=== PATIENT | female | born 1970 | race Caucasian/White ===

== ENCOUNTER 2018-07-11 23:43 | Emergency (ER) | payer OTHER ==
[~2018-07-11] VITALS: Ht 162.6 cm; Wt 72.6 kg
--- OUTSIDE RECORDS SUMMARY | ~2018-07-11 | XMS | Clinical Summary ---
Demographics + + + | Address | [address] | | | [address] | | | [place] [address] | + + + | Home Phone | | + + + | Preferred Language | Unknown | + + + | Marital Status | | + + + | Rastafari Affiliation | Unknown | + + + | Race | Unknown | + + + | Ethnic Group | Unknown | + + + Author + + + | Author | [facility] | | | and [place] | + + + | Organization | [facility] | | | and [place] | + + + | Address | Unknown | + + + | Phone | Unavailable | + + + Support + + +---------+ + | Name | Relationship | Address | Phone | + + +---------+ + | Dimas Carmona | ECON | Unknown | | + + +---------+ + Care Team Providers + +------+ + | Care Medical Records Clerk Name | Role | Phone | + +------+ + | Rogers Olmedo MD | PP | | + +------+ + Allergies + + + + + + | Active Allergy | Reactions | Severity | Noted | Comments | | | | | Date | | + + + + + + | Amoxicillin | | | 05/23/20 | | | | | | 12 | | + + + + + + | Ibuprofen | | | 05/23/20 | | | | | | 12 | | + + + + + + | Penicillins | | | 05/23/20 | | | | | | 12 | | + + + + + + Current Medications + + +-------+---------+------+------+-------+ | Prescription | Sig. | Disp. | Refills | Star | End | Statu | | | | | | t | Date | s | | | | | | Date | | | + + +-------+---------+------+------+-------+ | simvastatin | Take 20 mg by mouth | | | | | Activ | | (ZOCOR) 20 mg tablet | nightly. | | | | | e | + + +-------+---------+------+------+-------+ | gabapentin | Take 300 mg by mouth | | | | | Activ | | (NEURONTIN) 300 mg | 3 times daily. | | | | | e | | capsule | | | | | | | + + +-------+---------+------+------+-------+ | sertraline | Take 150 mg by mouth | | | | | Activ | | (ZOLOFT) 100 mg | Daily. | | | | | e | | tablet | | | | | | | + + +-------+---------+------+------+-------+ Active Problems + + + | Problem | Noted Date | + + + | Left leg weakness | 06/30/2014 | + + + | Subluxation of patella, acquired | 06/30/2014 | + + + | INJURY TO ULNAR NERVE | 05/23/2012 | + + + Social History + +-------+ +--------+------+ | Tobacco Use | Types | Packs/Day | Years | Date | | | | | Used | | + +-------+ +--------+------+ | Current Every Day | | | | | | Smoker | | | | | + +-------+ +--------+------+ + + + | Sex Assigned at | Date Recorded | | | | + + + | Not on file | | + + + Last Filed Vital Signs + + + + | Vital Sign | Reading | Time Taken | + + + + | Blood Pressure | 119/80 | 06/29/20141007 PDT | + + + + | Pulse | 67 | 06/29/20141007 PDT | + + + + | Temperature | - | - | + + + + | Respiratory Rate | - | - | + + + + | Oxygen Saturation | - | - | + + + + | Inhaled Oxygen | - | - | | Concentration | | | + + + + | Weight | 68 kg (150 lb) | 06/29/20141007 PDT | + + + + | Height | 160 cm (5' 3") | 06/29/20141007 PDT | + + + + | Body Mass Index | 26.57 | 06/29/20141007 PDT | + + + + Plan of Treatment + + + + + | Health Maintenance | Due Date | Last Done | Comments | + + + + + | Vaccine: | | | | | Dtap/Tdap/Td (1 - | 7 | | | | Tdap) | | | | + + + + + | Cervical Cancer | | | | | Screening (Pap) | 8 | | | + + + + + | Vaccine: Influenza | | | | | (#1) | 8 | | | + + + + + Results Not on filefrom Last 3 Months Insurance + +--------+ +--------+ +---------+ | Payer | Benefi | Subscriber | Type | Phone | Address | | | t Plan | ID | | | | | | / | | | | | | | Group | | | | | + +--------+ +--------+ +---------+ | [employer] | MODA | [id number] | Medica | [phone] | | | MEDICAID HMO | HEALTH | | id | [id number] | | | | MDCD | | | | | | | [place]MO [place] | | | | | + +--------+ +--------+ +---------+ + +--------+ +--------+ + + | Guarantor Name | Accoun | Relation to | Date | Phone | Billing Address | | | t Type | Patient | of | | | | | | | | | | + +--------+ +--------+ + + | HANNAH THOMPSON | Person | Self [birth year] Home: | [address] | | | al/Fam | | [phone] | [phone] [place] | | | ce | | | [phone] | [place] [address] | + +--------+ +--------+ + +
--- OUTSIDE RECORDS SUMMARY | ~2018-07-11 | XMS | Clinical Summary ---
Demographics + + + | Address | [address] | | | [address] | | | [place] [address] | + + + | Home Phone | | + + + | Preferred Language | Unknown | + + + | Marital Status | | + + + | Adventism Affiliation | Unknown | + + + | Race | Unknown | + + + | Ethnic Group | Unknown | + + + Author + + + | Author | [facility] | | | and [place] | + + + | Organization | [facility] | | [...] Team Providers + +------+ + | Care Financial Advisor Name | Role | Phone | + [...] | [employer] | MODA | [id number] | Medica | [phone] | | | MEDICAID HMO | HEALTH [...] | | | [phone] | [place] [address] | + +--------+ +--------+ + +
[~2018-07-11 23:43] MED LIST: ATIVAN1 MG PO; CIPRO250 MG PO; DICLOFENAC SODI75 MG PO; GABAPENTIN300 MG PO; GABAPENTIN400 MG PO; MIRTAZAPINE30 MG PO; NORCO 10-325 T1 EACH PO; NORCO 5-325 TA1 EACH PO; PAROXETINE HCL20 MG PO; PERCOCET 5-3251 EACH PO; PROMETHAZINE HC25 M1 PO; PROTONIX40 MG PO; SERTRALINE HCL100 MG PO; SIMVASTATIN10 MG PO; SIMVASTATIN20 MG PO; ZOFRAN ODT4 MG PO
[2018-07-13] MEDS ORDERED: PERCOCET 5-3251 EACH PO (09:25)
[2018-07-14] MEDS ORDERED: PERCOCET 10-321 EACH PO (13:08)
== END 2018-07-12 01:50 | disposition home or self-care (01) ==
LOC: ED 23:43
PROC: 2W3DX1Z Immobilization of Left Lower Arm using Splint (ICD-10-PCS; principal; 2018-07-11)
DX: S52.502A Unspecified fracture of the lower end of left radius, initial encounter for closed fracture (principal); F17.200 Nicotine dependence, unspecified, uncomplicated; Z88.0 Allergy status to penicillin; Z88.6 Allergy status to analgesic agent; W01.0XXA Fall on same level from slipping, tripping and stumbling without subsequent striking against object, initial encounter; Y92.090 Kitchen in other non-institutional residence as the place of occurrence of the external cause
CPT/HCPCS: 29125; 73110; 99283

== ENCOUNTER 2018-07-12 09:31 | Emergency (ER) | payer OTHER ==
[~2018-07-12] VITALS: Ht 162.6 cm; Wt 72.6 kg
--- OUTSIDE RECORDS SUMMARY | ~2018-07-12 | XMS | Clinical Summary ---
Demographics + + + | Address | [address] | | | [address] | | | [place] [address] | + + + | Home Phone | | + + + | Preferred Language | Unknown | + + + | Marital Status | | + + + | Yarsani Affiliation | Unknown | + + + | Race | Unknown | + + + | Ethnic Group | Unknown | + + + Author + + + | Author | [facility] | | | and [place] | + + + | Organization | [facility] | | | and [place] | + + + | Address | Unknown | + + + | Phone | Unavailable | + + + Support + + +---------+ + | Name | Relationship | Address | Phone | + + +---------+ + | Dimas Camrona | ECON | Unknown | | + + +---------+ + Care Team Providers + +------+ + | Care Flaker Operator Name | Role | Phone | + [...] | [employer] | MODA | [id number] | Medica | [phone] | | | MEDICAID HMO | HEALTH [...] | | | [phone] | [place] [id number] | + +--------+ +--------+ + +
--- OUTSIDE RECORDS SUMMARY | ~2018-07-12 | XMS | Clinical Summary ---
Demographics + + + | Address | [address] | | | [address] | | | [place] [address] | + + + | Home Phone | | + + + | Preferred Language | Unknown | + + + | Marital Status | | + + + | Scientology Affiliation | Unknown | + + + [...] Team Providers + +------+ + | Care Irrigation Pump Installer Name | Role | Phone | + [...] | [employer] | MODA | [id number] | Medica | [phone] | | | MEDICAID HMO | HEALTH [...] | | | [address] | [place] [id number] | + +--------+ +--------+ + +
[2018-07-13] MEDS ORDERED: PERCOCET 5-3251 EACH PO (09:25)
[2018-07-14] MEDS ORDERED: PERCOCET 10-321 EACH PO (13:08)
== END 2018-07-12 10:08 | disposition home or self-care (01) ==
LOC: ED 09:31
DX: M79.602 Pain in left arm (principal)

== ENCOUNTER 2018-08-27 17:11 | Emergency (ER) | payer OTHER ==
[~2018-08-27] VITALS: Ht 162.6 cm; Wt 68.0 kg
--- OUTSIDE RECORDS SUMMARY | ~2018-08-27 | XMS | Clinical Summary ---
Demographics + + + | Address | [address] | | | [address] | | | [place] [address] | + + + | Home Phone | | + + + | Preferred Language | Unknown | + + + | Marital Status | | + + + | Hinduism Affiliation | Unknown | + + + | Race | Unknown | + + + | Ethnic Group | Unknown | + + + Author + + + | Author | [facility] | | | and [place] | + + + | Organization | [facility] | | | [...] Team Providers + +------+ + | Care Abrasive Mixer Helper Name | Role | Phone | + [...] | [employer] | MODA | [id number] | Medica | [phone] | | | MEDICAID HMO | HEALTH [...] | | | [address] | [place] [address] | + +--------+ +--------+ + +
--- OUTSIDE RECORDS SUMMARY | ~2018-08-27 | XMS | Clinical Summary ---
Demographics + + + | Address | [address] | | | [address] | | | [place] [address] | + + + | Home Phone | | + + + | Preferred Language | Unknown | + + + | Marital Status | | + + + | Yazidi Affiliation | Unknown | + + + | Race | Unknown | + + + | Ethnic Group | Unknown | + + + Author + + + | Author | [facility] | | | and [place] | + + + | Organization | [facility] | | | [...] Team Providers + +------+ + | Care Clinic Scheduler Name | Role | Phone | + [...] | [employer] | MODA | [id number] | Medica | [phone] | | | MEDICAID HMO | HEALTH [...] | | | [address] | [place] [address] | + +--------+ +--------+ + +
[~2018-08-27 17:11] MED LIST changes: +PERCOCET 10-321 EACH PO
--- NOTE | 2018-08-28 06:36 | EKG ---
[facility] [address] [place], [place] [address] Signed Normal sinus rhythm Normal ECG When compared with ECG of 13-JUL-2018 09:27, No significant change was found Confirmed by PINEDA KEITA MD ([id number]) on 08/28/2018 6:36:36 AM Electronically Signed By: PINEDA KEITA MD 08/28/18 0636 PATIENT NAME: PATY PUENTES Electrocardiogram DATE OF : 66 PHYSICIAN: PINEDA KEITA MD REPORT #: [id number] REPORT IS CONFIDENTIAL AND NOT TO BE RELEASED WITHOUT AUTHORIZATION
== END 2018-08-27 20:42 | disposition home or self-care (01) ==
LOC: ED 17:11
DX: R11.2 Nausea with vomiting, unspecified (principal); R10.84 Generalized abdominal pain; R19.7 Diarrhea, unspecified; D72.829 Elevated white blood cell count, unspecified; Z87.891 Personal history of nicotine dependence; Z88.0 Allergy status to penicillin; Z88.6 Allergy status to analgesic agent
CPT/HCPCS: 74177; 80053; 81001; 83690; 84484; 85025; 93005; 93010; 96361; 96374; 96375; 96376; 99284; J1200; J2270; J2405; J2765; J7030; Q9967

== ENCOUNTER 2020-12-02 15:34 | Emergency (ER) | payer OTHER ==
[~2020-12-02] VITALS: Ht 160 cm; Wt 57.2 kg
[~2020-12-02 15:34] MED LIST changes: +HYDROCODON-ACE1 EAC8 PO; +LORAZEPAM1 MG PO; +NEURONTIN300 MG PO; +VENLAFAXINE HCL25 MG PO
--- OUTSIDE RECORDS SUMMARY | 2020-12-02 15:38 | XMS ---
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 Care History Medical/Surgical 07/13/2018 [facility] - PATIENT WAS PRESCRIBED 25 PAIN PILLS WITHIN THE LAST 24 HOURS. - PATIENT HAS A FOLLOW UP WITH DR ROSALES ON 07/13/18 @ 8:30 - SURGERY SCHEDULED WITH DR ROSALES ON 07/14/18. Annamarie VISIT COUNT (12 MO.) [address] [place] [address] TOTAL 1 NOTE: Visits indicate total known visits. ED/UCC VISIT TRACKING (12 MO.) 12/02/2020 15:35 [facility] [place] TYPE: Emergency COMPLAINT: - NAUSEA/VOMITING INPATIENT VISIT TRACKING (12 MO.) No inpatient visits to display in this time frame [email or web address]
[2020-12-02] MEDS ORDERED: VENLAFAXINE HC100 MG PO (15:48)
[2020-12-02] MEDS ORDERED: ATIVAN1 MG PO (18:26)
[2020-12-02] MEDS ORDERED: ZOFRAN4 MG PO (18:26)
== END 2020-12-02 20:18 | disposition home or self-care (01) ==
LOC: ED 15:34
DX: R11.2 Nausea with vomiting, unspecified (principal); R10.13 Epigastric pain; F41.9 Anxiety disorder, unspecified; F32.9 Major depressive disorder, single episode, unspecified; F17.200 Nicotine dependence, unspecified, uncomplicated; Z88.0 Allergy status to penicillin; Z88.8 Allergy status to other drugs, medicaments and biological substances; Z79.899 Other long term (current) drug therapy
CPT/HCPCS: 80053; 81001; 83690; 83735; 84703; 85025; 96374; 96375; 99284-25; J2060; J2405; J2765; J7030; J7121

== ENCOUNTER 2021-06-04 17:24 | Emergency (ER) | payer OTHER ==
[~2021-06-04] VITALS: Ht 160 cm; Wt 57.1 kg
[~2021-06-04 17:24] MED LIST changes: +VENLAFAXINE HC100 MG PO; +ZOFRAN4 MG PO
--- OUTSIDE RECORDS SUMMARY | 2021-06-04 17:26 | XMS ---
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 [place] VISIT COUNT (12 MO.) 2 [facility] TOTAL 2 NOTE: Visits indicate total known visits. ED/UCC VISIT TRACKING (12 MO.) 06/04/2021 17:[address] [facility] [place] TYPE: Emergency COMPLAINT: - ABDOMINAL PAIN 12/02/2020 15:35 [facility] [place] TYPE: Emergency COMPLAINT: - NAUSEA/VOMITING DIAGNOSES: - Other equipment operator intermodal yard (current) drug therapy - Nicotine dependence, unspecified, uncomplicated - Anxiety disorder, unspecified - Major depressive disorder, single episode, unspecified - Allergy status to other drugs, medicaments and biological substances - Nausea with vomiting, unspecified - Epigastric pain - Allergy status to penicillin INPATIENT VISIT TRACKING (12 MO.) 04/15/2021 06:02 [facility] [place] TYPE: Orthopedic DIAGNOSES: - 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
[2021-06-04] MEDS ORDERED: NAPROXEN500 MG PO (17:45)
[2021-06-04] MEDS ORDERED: QUETIAPINE FUMA25 MG PO (17:46)
[2021-06-04] MEDS ORDERED: ONDANSETRON ODT8 MG PO (21:37)
[2021-06-04] MEDS ORDERED: PROTONIX40 MG PO (21:37)
--- NOTE | 2021-06-06 08:50 | EKG ---
[facility] [address] [place] [address] Signed Sinus bradycardia Otherwise normal ECG When compared with ECG of 07-JUN-2019 13:31, Vent. rate has decreased BY 39 BPM Confirmed by RALPH EMMANUEL MD ([id number]) on 06/06/2021 8:50:34 AM Electronically Signed By: RALPH EMMANUEL MD 06/06/21 0850 PATIENT NAME: PATY PUENTES Electrocardiogram DATE OF : 66 PHYSICIAN: RALPH EMMANUEL MD REPORT #: [id number] REPORT IS CONFIDENTIAL AND NOT TO BE RELEASED WITHOUT AUTHORIZATION
== END 2021-06-04 22:16 | disposition home or self-care (01) ==
LOC: ED 17:24
DX: K52.9 Noninfective gastroenteritis and colitis, unspecified (principal); F17.200 Nicotine dependence, unspecified, uncomplicated; Z88.0 Allergy status to penicillin; Z88.8 Allergy status to other drugs, medicaments and biological substances; Z79.899 Other long term (current) drug therapy
CPT/HCPCS: 71045; 80053; 81001; 83690; 83735; 84484; 85025; 93005; 93010; 96361; 96374; 96375; 99284-25; C9113; J2270; J2405; J7030

== ENCOUNTER 2021-06-07 16:58 | Observation (INO) | payer OTHER ==
[~2021-06-07] VITALS: Ht 160 cm; Wt 58.0 kg
[~2021-06-07 16:58] MED LIST changes: +NAPROXEN500 MG PO; +ONDANSETRON ODT8 MG PO; +QUETIAPINE FUMA25 MG PO
--- OUTSIDE RECORDS SUMMARY | 2021-06-07 17:02 | XMS ---
PreManage Notification: PATY PUENTES Security Circular Shear Operator Events No recent Security Events currently on file CRITERIA MET - [facility] - 2 Visits in 30 Days CARE PROVIDERS EARLE [facility] 12/03/2020-Current PHONE: [phone] Salvador has no Care Guidelines for this patient. Annamarie VISIT COUNT (12 MO.) 4 [facility] TOTAL 4 NOTE: Visits indicate total known visits. ED/C VISIT TRACKING (12 MO.) 06/07/2021 16:[address] [facility] [place] TYPE: Emergency COMPLAINT: - WEAKNESS, IRREGULAR HEART RATE, SLURRED SPEECH 06/05/2021 16:[address] [facility] [place] TYPE: Emergency COMPLAINT: - ABDOM PAIN 06/04/2021 17:[address] [facility] [place] TYPE: Emergency COMPLAINT: - ABDOMINAL PAIN 12/02/2020 15:[address] 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
[2021-06-08] MEDS ORDERED: SUCRALFATE1 GM PO (11:37)
[2021-06-08] MEDS ORDERED: VENLAFAXINE HCL50 MG PO (11:40)
[2021-06-09] MEDS ORDERED: FLUCONAZOLE200 MG PO (09:27)
[2021-06-09] MEDS ORDERED: OXYCODONE HCL5 MG PO (09:28)
[2021-06-09] MEDS ORDERED: PROTONIX40 MG PO (09:28)
[2021-06-09] MEDS ORDERED: POTASSIUM CHLO20 ME1 PO (09:30)
== END 2021-06-09 12:25 | disposition home or self-care (01) ==
LOC: ED 16:58 → MS 17:00 → CCU 21:00 → ED 21:00 → CCU 21:27 → MS 21:27
PROVIDERS: Surgery; ADMIT Student in an Organized Health Care Education/Training Program; ATTEND Student in an Organized Health Care Education/Training Program
PROC: 0DB78ZX Excision of Stomach, Pylorus, Via Natural or Artificial Opening Endoscopic, Diagnostic (ICD-10-PCS; principal; 2021-06-08 11:07)
DX: B37.81 Candidal esophagitis (principal); K29.70 Gastritis, unspecified, without bleeding; E87.6 Hypokalemia; F39 Unspecified mood [affective] disorder; F17.200 Nicotine dependence, unspecified, uncomplicated; K21.9 Gastro-esophageal reflux disease without esophagitis; Z88.6 Allergy status to analgesic agent; Z88.0 Allergy status to penicillin; Z20.822 Contact with and (suspected) exposure to COVID-19
CPT/HCPCS: 74177; 80048; 80053; 81001; 83690; 83735; 84132; 85025; 94760; 96375; 96376; 99285-25; C9113; C9803; G0378; J0330; J0690; J1100; J1170; J1450; J1790; J2405; J2550; J2704; J3480; J7030; J7121; Q9967; U0003

== ENCOUNTER 2021-11-30 09:30 | Inpatient (IN) | payer OTHER ==
[~2021-11-30] VITALS: Ht 160 cm; Wt 60.0 kg
--- NOTE | ~2021-11-30 | DS ---
[facility] [address], [place] [address] Draft ADMISSION DATE: 11/30/2021 DISCHARGE DATE: 12/03/2021 ADMISSION DIAGNOSIS: Right hip fracture. DISCHARGE DIAGNOSIS: Right hip fracture. PROCEDURE PERFORMED DURING THIS HOSPITALIZATION: Open reduction and internal fixation, right hip. HOSPITAL COURSE: Hannah is a 51-year-old female, who suffered a ground level fall in her house, landing on her right hip. She was transported to the Emergency Department, where radiographs showed an intertrochanteric fracture. During the surgery, this was discovered to extend below the trochanter to the subtroch region. We thus changed our fixation choice from DHS to an IM hip screw. This was accomplished without any significant problems. She was taken to the recovery room subsequent to the orthopedic floor. She was seen by Physical therapy and able to ambulate yesterday with good strength and balance. She was little impulsive, but was able to transfer without any trouble with no assist. She will be felt ready to be discharged today to home, where she does have family to help take care of her. She will need a walker and in-home physical therapy due to adverse weather conditions. She was kept on DVT prophylaxis of SCDs, TEDs, and Xarelto 10 mg p.o. daily. This will be continued at home. She did well on pain medication of oxycodone. She will follow up with me in 7-10 days. She will notify me of any problems in the interim. Ernesto Deluna MD BA/YAMILE /[id number] Copies: PATIENT NAME: HANNAH PUENTES DISCHARGE SUMMARY DATE OF : 66 REPORT #: [id number] PHYSICIAN: ERNESTO DELUNA MD PCP: CIRO OG MD REPORT IS CONFIDENTIAL AND NOT TO BE RELEASED WITHOUT AUTHORIZATION [address] [place], [place] [address] Draft ~ PATIENT NAME: HANNAH PUENTES DISCHARGE SUMMARY DATE OF : 66 REPORT #: [id number] PHYSICIAN: ERNESTO DELUNA MD PCP: CIRO OG MD REPORT IS CONFIDENTIAL AND NOT TO BE RELEASED WITHOUT AUTHORIZATION
[~2021-11-30 09:30] MED LIST changes: +FLUCONAZOLE200 MG PO; +OXYCODONE HCL5 MG PO; +POTASSIUM CHLO20 ME1 PO; +SUCRALFATE1 GM PO; +VENLAFAXINE HCL50 MG PO
--- OUTSIDE RECORDS SUMMARY | 2021-11-30 09:32 | XMS ---
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 CRITERIA MET - [facility] CARE PROVIDERS EARLE [facility] 12/03/2020-Current PHONE: Unknown Salvador has no Care Guidelines for this patient. E.D. VISIT COUNT (12 MO.) 5 [facility]. TOTAL 5 NOTE: Visits indicate total known visits. ED/UCC VISIT TRACKING (12 MO.) 11/30/2021 09:31 [facility] [place] TYPE: Emergency COMPLAINT: - FALL,R LEG PAIN 06/07/2021 16:59 [facility] [place] TYPE: Emergency COMPLAINT: - ESPHOGITIS HYPOKALEMIA 06/05/2021 16:28 [facility] [place] TYPE: Emergency COMPLAINT: - ABDOM PAIN 06/04/2021 17:[address] [facility] [place] TYPE: Emergency COMPLAINT: - ABDOMINAL PAIN DIAGNOSES: - Allergy status to other drugs, medicaments and biological substances - Nicotine dependence, unspecified, uncomplicated - Other terminal manager (current) drug therapy - Noninfective gastroenteritis and colitis, unspecified - Nausea with vomiting, unspecified - Allergy status to penicillin 12/02/2020 15:35 [facility] [place] [place] TYPE: Emergency COMPLAINT: - NAUSEA/VOMITING DIAGNOSES: - Other long-term (current) drug therapy - Nicotine dependence, unspecified, uncomplicated - Anxiety disorder, unspecified - Major depressive disorder, single episode, unspecified - Allergy status to other drugs, medicaments and biological substances - Nausea with vomiting, unspecified - Epigastric pain - Allergy status to penicillin INPATIENT VISIT TRACKING (12 MO.) 06/07/2021 17:[address] [facility] [place] TYPE: Observation COMPLAINT: - ESPHOGITIS HYPOKALEMIA DIAGNOSES: - Unspecified mood [affective] disorder - Candidal esophagitis - Gastro-esophageal reflux disease without esophagitis - Gastritis, unspecified, without bleeding - Allergy status to penicillin - Hypokalemia - Nicotine dependence, unspecified, uncomplicated - Allergy status to analgesic agent 04/15/2021 06:02 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
--- NOTE | 2021-11-30 12:40 | NUR ---
REPORT RECEIVED FROM CA SILVESTRE. AWAITING PTS ARRIVAL TO UNIT.
--- NOTE | 2021-11-30 13:00 | NUR ---
THIS RN BRINGS PT TO MED/SURG. PT TRANSFERED TO BED WITH 3 PERSON ASSIST. PTS PAIN INCREASES FROM 03/08 TO 9 WITH TRANSFER. PT TEARFUL AND CRYING OUT LOUDLY. MEDICATION GIVEN (SEE MAR). PT CALMS AFTER 5 MINUTES. PILLOWS UNDER PTS AFFICTED LEG, REMOVED. LEGS ELEVATED IN BED FOR COMFORT. PTS STATES "THATS MUCH BETTER. PT REMAINS OFF THE 2L O2 BY NC DURING TRANSFER TO BED AND NOTED TO KERRI P TO 77% O2 SATURATIONS. PT PLACED BACK ON 2L O2 BY MS WITH OXYGNE SATUARTIONS CLIMBING TO 94%. PT REPORTS PAIN IS IMPROVING NOW 05/08. IV'S ASSESSED, WNL, BRISK BLOOD RETURN NOTED TO BOTH. IV FLUIDS STARTED. PT ALERT AND ORIENTED TO ALL. SENSATION INTACKT. WEAKNESS AND SEVERE PAIN NOTED TO RIGHT LEG WITH ANY MOVEMENT. PT IS ABLE TO WIGGLE TOES. MODERATE PLANTAR AND DORSI FELXTION NOTED TO BILATERAL LOWER EXTREMTIES. PT REPORTS OCCATIONAL COUGH, LUNG SOUNDS CLEAR, PT REPORTS OCCATIONAL CLEAR SPUTUM. STONG TIBIALIS AND PEDIAL PULSES NOTED. PT REPORTS DENTURES HAVE BEEN LEFT AT HOME AND "DONT' FIT ANYWAY." NO ADDITIONAL REQUESTS OR COMPLAINTS. CALL LIGHT WIHTIN REACH. BED RAILS UP.
--- NOTE | 2021-11-30 13:39 | NUR ---
THIS RN TO ROOM TO CHECK ON PT. DR. MIKE TO BEDSIDE FOR ROUNDS. PT REPORTS PAIN IS NOW 2/10 AND "MUCH BETTER[address] DR. MIKE CONSULTED REGARDING A NICOTENE PATCH, VERBAL ORDERS GIVEN AND ENTERED. ORDERS GIVEN FOR REGULAR DIET. COFFEE WITH CREAM AND SUGAR PROVIDED PER PT REQUEST. DR. MIKE STATES TO POSITION PT FOR COMFORT. PT DECLINES PILLOW BACK UNDER HER LEG STATING SHE IS COMFORTABLE NOW. NO ADDITIONAL REQUESTS OR COMPLAINTS. CALL LIGHT WIHTIN REACH. BED RAILS UP.
--- NOTE | 2021-11-30 14:02 | NUR ---
IV FLUID ORDER CHANGED. NEW BAG HUNG. PT WATCHING TV. HEEL PROTECTORS AND SCD'S APPLIED PER MD ORDER. MD STATES TXA IS TO BE WARNING ANALYST TO OR AND NOT TO BE GIVEN NOW. PHARAMCY CALLED, MEDICAITON RETIMED. NO ADDITIONAL REQUESTS OR COMPLAINTS. CALL LIGHT WITHIN REACH. BED RAILS UP.
--- NOTE | 2021-11-30 14:49 | NUR ---
THIS RN TO ROOM TO CHECK ON PT. PT REPORTS PAIN IS "CREEPING BACK UP." PT REPORTS 6/10 ACHING CONSTANT PAIN IN LEFT UPPER LEG. SEE MAR FOR MEDICATION GIVEN. PT DENIES ADDITIONAL REQUESTS OR COMPLAINTS. CALL LIGHT WITHIN REACH. BED RAILS UP.
[2021-11-30] MEDS ORDERED: PRILOSEC OTC20 MG PO (15:36)
[2021-11-30] MEDS ORDERED: ACETAMINOPHEN1 EACH PO (15:37)
--- NOTE | 2021-11-30 15:37 | NUR ---
MED REC COMPLETE
--- NOTE | 2021-11-30 15:48 | NUR ---
THIS RN TO ROOM TO CHECK ON PT. PT TALKING ON PHONE. PT REPORTS 4/10 PAIN AT THIS TIME REPORTS PAIN IS TOLERABLE AT THIS TIME. PT DECLINES PLACING A DINNER ORDER AT THIS TIME. REQUESTS [facility]. NO ADDITIONAL REQUESTS OR COMPLAINTS. CALL LIGHT WITHIN REACH. BED RAILS UP.
--- NOTE | 2021-11-30 16:18 | NUR ---
THIS RN TO ROOM WITH DR. KEITA. PT HAS REMOVED OXGYEN FROM NOSE. PT REPORTS A DRY NOSE. OXGYEN SATURATIONS MID 80'S ON ROOM AIR. HUMIDIFICATION ADDED TO OXGYEN TUBING, EDUCATION DONE WITH PT REGARDING KEEPING OXGYEN IN PLACE. OXYGEN SATURATION CLIMBS TO 96% ON 2L O2 BY NC. PT SLOW TO RESPOND AND FORGETFUL. PT REPORTS 6/10 PAIN AND STATES "IT IS TOLERABLE." EDUCATION DONE WITH PT REGARDING PAIN MEDICAITON USE. PT REPORTS AT THIS TIME THAT SHE SMOKES MARIJAUANA "WHENEVER I FEEL I NEED IT" CLARIFYING THAT THIS MEANS MULTIPLE TIMES A DAY. PT ALSO REPORTS HISTORY OF INCONTINANCE. PT DENIES ADDITIONAL REQUESTS OR COMPLAINTS. CALL LIGHT DEXMA REACH. BED RAILS UP.
--- NOTE | 2021-11-30 17:06 | NUR ---
MEDICAITONS DUE. THIS RN TO ROOM. DINNER DELIVERED TO PT. PT REPORTS HER DINNER "IS DISCUTING." ALTERNATE FOOD OFFERED TO PT. PT DECLINES AND IS EATING HER POTATOES. PT RERPOTS 3/10 PAIN IN BACK OF RIGHT LEG AT THIS TIME. ICE PACKS PLACED PER ORDER FROM DR. KEITA. PT REPORTS SHE WANTS TO "GO HAVE A SMOKE OF PLEITEZ." PT EDUCATION DONE REGARDING SMOKE FREE ENVIRONMENT OF HOSPITAL. MEDICATIONS GIVEN. NO ADDITIONAL REQUESTS OR COMPLAINTS. CALL LIGHT WITHIN REACH.
--- NOTE | 2021-11-30 17:35 | NUR ---
PT HERE FOR RIGHT INTROTROCANTER FEMORAL FRACTURE. PT REMAINS ON BED REST. PT TOELRATING REGULAR DIET WITH MINIMAL INTAKE. PT TO BE NPO AT MIDNIGHT FOR PROBABLE SURERGY TOMORROW. PT ALERT AND ORIENTED. RIGHT HIP AND LEG PAIN 2-9/10, WORSE WITH MOVEMENT. BLOCK PERFORMED BY PATIENT MONITOR IN ER, PRN PAIN MEDICATIONS GIVEN, ICE PACKS IN PLACE. PT REMAINS ON 2L O2 BY NC WITH FREQUENT DROWSINESS. MALAVE CATHETER IN PLACE, QUANTITY SUFFICIENT. PT HAS YET TO USE CALL LIGHT. BED RAILS UP AND BED ALARM ON FOR SAFETY.
--- NOTE | 2021-11-30 18:37 | NUR ---
PT CALL LIGHT ON. PT REQUESTS ADDITIONAL PAIN MEDICATION FOR 7/10 PAIN IN RIGHT "DEEP DOWN IN SIDE" HIP. PT POINTS TO INGINAL AREA WHEN DESCRIBING PAIN. PT EDUCATION DONE REGARDING PAIN MEDICATION AND RESPIRTORY RATE. MEDICATION GIVEN, SEE MAR. PT PREVIOUSLY WEANED TO 1L O2 BY GA BY CA BALLARD. PT REMAINS AT 94-96% ON 1L O2 BY GA AT THIS TIME. RR = 14-16. PT HAS REMOVED OXGYEN TUBING AND STATES "I WON'T WEAR IT, IT HURTS MY NOSE." PT OXGYEN SATURATION DROP TO MID 80'S ON ROOM AIR. OXY MASK PLACED AT 1L O2 TO MAINTAIN OXGYEN SATURATIONS IN 90'S. PT DENIES ADDITIONAL REQUESTS OR COMPLAINTS. CALL LIGHT WITHIN REACH. BED RAILSUP. BED ALARM ON.
--- NOTE | 2021-11-30 19:30 | NUR ---
SHIFT REPORT RECEIVED FROM ROSE MARIE PENALOZA. PT RESTING IN BED, TALKING ON PHONE. IV FLUIDS INFUSING PER ORDER. CALL LIGHT IN REACH.
--- NOTE | 2021-11-30 20:25 | EKG ---
[facility] [address] [place] [address] Signed Normal sinus rhythm Normal ECG When compared with ECG of 04-JUN-2021 17:47, Vent. rate has increased BY 30 BPM Confirmed by PINEDA KEITA MD ([id number]) on 11/30/2021 8:25:38 PM Electronically Signed By: PINEDA KEITA MD 11/30/212024 PATIENT NAME: PATY PUENTES Electrocardiogram DATE OF : 66 PHYSICIAN: PINEDA KEITA MD REPORT #: [id number] REPORT IS CONFIDENTIAL AND NOT TO BE RELEASED WITHOUT AUTHORIZATION
--- NOTE | 2021-11-30 21:00 | NUR ---
PT RESTING IN BED, WATCHING TV. NO NEEDS AT THIS TIME. CALL LIGHT IN REACH.
--- NOTE | 2021-11-30 22:00 | NUR ---
ASSESSMENT, VS AND I&O COMPLETED. ANANDA WNL. PT IS VERY TEARFUL, "ANGRY" ABOUT MULTIPLE PERSOANL ISSUES. THERAPUTIC COMMUNICATION PROVIDED. GCS 15, A&O X4.LUNGS CLEAR, HEART TONES REGULAR. ABD SOFT, NONTENDER, BOWEL TONES ACTIVE. CMS INTACT IN ALL EXTREMITIES EXCEPT WEAKNESS IN RIGHT HIP/LEG. ICE PACKS PROVIDED FOR HIP. PT REPORTS 10/10 R HIP PAIN, PRN PAIN MED PROVIDED. SCHEDULED MEDS PROVIDED. IVs WNL, CDI, IV FLUIDS INFUSING PER ORDER. ANANDA WNL. COFFEE PROVIDED. NO OTHER NEEDS. CALL LIGHT IN REACH.
--- NOTE | 2021-11-30 23:36 | NUR ---
TEA PROVIDED. NEW BAG IV FLUIDS PROVIDED. PT DENIES PAIN AT THIS TIME. NO OTHER NEEDS. CALL LIGHT IN REACH.
--- NOTE | 2021-12-01 00:20 | NUR ---
PT NPO AT THIS TIME. FLUIDS REMOVED. MOUTH SWABS PROVIDED. NO OTHER NEEDS. CALL LIGHT IN REACH.
--- NOTE | 2021-12-01 02:30 | NUR ---
ASSESSMENT, VS AND I&O COMPLETED. PT CALM AT THIS TIME. LUNGS CLEAR. HEART TONES REGULAR. ABD SOGT, NONTENDER, BOWEL TONES ACTIVE. CMS INTACT EXCEPT DECREASED MOVEMENT IN RIGHT HIP/LEG. IVs WNL. ICE PACKS PROVIDED. SCDs AND HEEL PROTECTION ON. PT REPORTS 7/10 R HIP PAIN, PRN PAIN MED PROVIDED. NO OTHER NEEDS. CALL LIGHT IN REACH.
--- NOTE | 2021-12-01 04:30 | NUR ---
PT RESTING IN BED. WATCHING TV. CALL LIGHT IN REACH.
--- NOTE | 2021-12-01 05:30 | NUR ---
PT HAS 7/10 RIGHT HIP PAIN, PRN PAIN MED PROVIDED. VS AND I&O COMPLETED. MALAVE WNL. NO OTHER NEEDS AT THIS TIME. CALL LIGHT REACH.
--- NOTE | 2021-12-01 07:16 | NUR ---
REPORT RECEIVED FROM CA JUAREZ. PT RESTING IN BED. PT HAD REMOVED OXY MASK. OXYGEN SATURATION 86% ON ROOM AIR. PT EDUCATION DONE REGARDING LEAVING OXYGEN IN PLACE. PT VERBALIZES UNDERSTANDING. PT PLACED BACK ON 1L O2 BY OM AND OXYGEN SATURATIONS CLIMB TO 94%. PT REPORTS 0/10 PAIN AT THIS TIME BUT REPORTS "TWITCHING" IN HER RIGHT LEG. PT UPDATED ON PLAN OF CARE AN PLAN FOR SURGERY. PT REQUESTS FOOD AND COFFEE, EDUCATION DONE WITH PT REGARDING NPO STATUS. NO ADDITIONAL REQUESTS OR COMPLAINTS. CALL LIGHT WITHIN REACH. BED RAILS UP. BED ALARM ON.
--- NOTE | 2021-12-01 07:34 | NUR ---
DR MIKE CALLED REGARDING MORNING PO MEDICATIONS. DR. MIKE STATES TO GIVE ALL MORNING PO MEDICATIONS.
--- NOTE | 2021-12-01 07:41 | NUR ---
MORNING ASSESSMENT AND MEDICAITON DUE. PT WATCHING CARTOONS ON TV. AWAKENS TO MOVEMENT IN THE ROOM. PT UP DATED ON PLAN OF CARE. PT REPORTS 3/10 PAIN IN RIGHT HIP AT THIS TIME THAT COMES IN "SHARP TWITCHING" AND THEN RESOLVES BACK TO 0/10. PT REPORTS " LONG I DON'T MOVE IT'S FINE." PT DENIES NEED FOR PAIN MEDICATION AT THIS TIME. ICE PACKS IN PLACE. IV'S ASSESSED, WNL, BRISK BLOOD RETURN NOTED FROM BOTH SITES. LEFT AC IV SALINE LOCKED, RIGHT AC IV INFUSING IV FLUIDS. PT REMAINS ALERT AND ORIENTED TO ALL. RIGHT LEG PAIN AND WEAKNESS CONTINUES. GENERALIED EDEMA NOTED TO RIGHT HIP AND LOWER LEG, NON PITTING AT THIS TIME. STRONG PLANTAR AND DEVORAH FELXTION NOTED BILATERALLY. STRONG PEDAL AND TIBIALIS PULSES NOTED. PT CONTINUES TO REPORT NUMBNESS IN RIGHT UPPER THIGH AND UPPER LEG. PT IS ABLE TO IDENTIFY ALL TOES WHEN TOUCHED. PT REPROTS "TINGLING" IN HER RIGHT CALF. EDUCATION DONE REGARDING NERVE BLOCK. PT VERBALIZES UNDERSTANDING. PT DENEIS ADDITIONAL REQUESTS OR COMPLAINTS. MEDICAITONS GIVEN WITH A SMALL SIP OF WATER, PT TOELRATED WELL. BED RAILS UP. CALL LIGHT WITHIN REACH. BED ALARM ON. SCD'S, AND HEEL PROTECTORS IN PLACE.
--- NOTE | 2021-12-01 09:31 | NUR ---
THIS RN TO ROOM TO CHECK ON PT. PT RESTING WITH EYES CLOSED. PT AWAKENS TO MOVEMENT IN THE ROOM, REPROTS 4/10 PAIN IN RIGHT HIP THAT "COMES AND GOES LIKE ZAPPING." PT DRIFTS QUICKLY BACK TO SLEEP. O2 AT 1L IN PLACE BY OXYMASK. BED RAILS UP. BED ALARM ON. NO ADDITIONAL NEEDS AT THIS TIME.
--- NOTE | 2021-12-01 10:00 | NUR ---
INTO ROOM TO ASSESS PATIENT. MELISA MAY AT BEDSIDE. PATIENT AWAKE, BUT APPEARS DROWSY. WHEN ASKED ABOUT PATIENT LIVING SITUATION SHE STATES SHE LIVES IN A HOME WITH HER CHILDREN, THOUGH LATER IN THE CONVERSATION PATIENT DISCUSSING MOVING IN WITH HER SON AFTER SURGERY. PATIENT STATES SHE NORMALLY IS ABLE TO COMPLETE ALL ADLS, SHOPPING AND DAILY TASKS ON HER OWN. PATIENT SON DONAL LIVE CLOSE TO HER AND ASSISTS WITH CARING FOR THE PATIENT ELDERLY MOTHER. PATIENT DOES NOT REQUIRE ANY DME. PATIENT STATES SHE HAS NOT WORKED IN SOMETIME, BUT CURRENTLY DOES NOT HAVE ANY FINANCIAL CONCERNS. PATIENT IS NORMALLY ABLE TO DRIVE HERSELF. DISCUSSED WITH PATIENT THAT SHE WILL LIKELY REQUIRE ASSISTANCE AND DME UPON DISCHARGE. PATIENT UNDERSTANDS AND BELIEVES SHE WILL BE ABLE TO MOVE IN WITH HER SON DONAL WHEN READY.
--- NOTE | 2021-12-01 10:03 | NUR ---
Patient is in bed with call light in reach. Guerrero was emptied.
--- NOTE | 2021-12-01 10:50 | NUR ---
THIS RN TO ROOM TO CHECK ON PT. PT REPORTS 6/10 RIGHT LEG PAIN, SEE MAR FOR MEDICATION GIVEN. PT ASSISTING BUSINESS ADMINISTRATION PROGRAM CHAIR WITH CHG WIPE DOWN PRIOR TO SURGERY. NO ADDITIONAL REQUESTS OR COMPLAINTS. CALL LIGHT WITHIN REACH. BED RAILS UP.
--- NOTE | 2021-12-01 11:17 | NUR ---
Wipe down for patient's surgery is complete at 11:10am today. 1PA. Patient is in bed with call light in reach and has a clean sheet on top of her.
--- NOTE | 2021-12-01 11:35 | NUR ---
THIS RN TO ROOM TO CHECK ON PT. PT RESTING IN BED ON BACK WITH EYES CLOSED. RESPIRATIONS EVEN AND UNLABORED. PT AWAKENS TO VOICE. PT REPORTS 6/10 PAIN AND REQUESTS ADDITIONAL PAIN MEDICATION. PT REPOSITIONED FOR COMFORT. ICE PACKS IN PLACE. SCD'S AND HEEL PROTECTORS REAPPLIED. PT DENIES ADDITIONAL REQUESTS OR COMPLAINTS. CALL LIGHT WITHIN REACH. BED RAILS UP. BED ALARM ON.
--- NOTE | 2021-12-01 12:06 | NUR ---
CALL RECEIVED, OR TEAM IN TRANSIT TO COLLECT PT FOR SURGERY. MEDICATIONS PULLED AND HUNG AT BEDSIDE FOR OR TEAM, TO BE ADMINISTERED IN OR. IV FLUSHED, BRISK BLOOD RETURN NOTED. PT UPDATED ON PLAN OF CARE. PRE OP CHECK LIST COMPLETE. PT VERBALIZES UNDERSTANDING OF PLAN OF CARE AND STATES HER QUESTIONS HAVE BEEN ANSWERED. NO ADDITIONAL REQUESTS OR COMPLAINTS. CALL LIGHT WITHIN REACH. BED RAILS UP.
--- NOTE | 2021-12-01 12:11 | NUR ---
CHELSEA MARINE RADIO INSTALLER AND SERVICER, ARRIVED TO TAKE PT TO OR. REPORT GIVEN TO CHELSEA. PT TO OR.
--- NOTE | 2021-12-01 14:59 | NUR ---
12/01/21 145ANTHONY JONES 1431-PATIENT ARRIVES IN PACU ON 10L VIA MASK. PATIENT IS REACTIVE TO VERBAL STIMULI. NPA IN PLACE. DIFFICULT OBTAINING O2 SATS. BLACKSMITH ASSISTANT AWARE. RESP EVEN AND UNLABORED. 1438-PATIENT IS REACTIVE TO VERBAL STIMULI. LUNG BASES CLEAR THROUGHOUT PER JOSELIN PENALOZA. 1440-PATIENT IS DROWSY. NPA REMOVED. RESP EVEN AND UNLABORED. DENIES PAIN AND NAUSEA. 1443-O2 DECREASED TO 6L VIA MASK. HOB RAISED.
--- NOTE | 2021-12-01 16:22 | NUR ---
POST OP EPIDURAL ORDER NOTED, PHARMACIST CALLED AND MEDICATION TIMES READJUSTED.
--- NOTE | 2021-12-01 16:25 | NUR ---
PT ARRIVED FROM PACU. REPORT RECEIVED FROM CA OLIVERA. PT ALERT AND ORIENTED AND RESPONDING TO QUESTIONS APPROPRIATLY. PT REPORTS 2/10 PAIN IN RIGHT HIP/LEG THAT IS WELL CONTROLED. PT DENIES NEED FOR PAIN MEDICATION AT THIS TIME. CRYO CUFF IN PLACE. STRENGTH WNL TO UPPER EXTREMITIES AND LEFT LOWER LEG. RIGHT LOWER LEG SLIGLY WEAK. PT ABLE TO MOVE TOES. STRONG AND EQUAL PLANTAR AND DORSI FLEXION NOTED TO BILATERAL FEET. STRONG BILATERAL TIBIALIS AND PEDEAL PULSES NOTED. SENSATION INTACT TO FEET, PT ABLE TO IDENTIFY TOES THAT ARE TOUCHED. GENERALIZED SWELLING NOTED TO RIGHT HIP AND UPPER LEG. PT TOLERATING PO COFFEE CRACKERS AND JELLO. DIET ADVANCED TO REGULAR. MALAVE CATHER REMAINS IN PLACE, DRAINING QUANTITY SUFFICIENT. ACTICOAT IN PLACE TO RIGHT UPPER LEG AND ABOVE THE KNEE. SMALL AMOUNT OF RED DRAINAGE NOTED AT PROXIMAL END OF DRESSING APPROXIMATLY THE SIZE OF A QUARTER. PIN POINT RED DRAINAGE NOTED TO DISTAL END OF DRESSING. CAST PADDING NOTED WRAPPED AROUND PTS FEET. URGENT CARE NURSE PRACTITIONERJOSELIN CALLED AND STATES CAST PADDING CAN BE REMOVED PER OR TEAM. CAST PADDING REMOVED BY THIS RN. PT TOELRATES MOVEMENT OF LEG WELL. SCD'S, HEEL PROTECTORS AND CRYO CUFF REMAIN IN PLACE. PT DENIES ADDITIONAL REQUESTS OR COMPLAINTS. CALL LIGHT WITHIN REACH. BED RAILS UP. BED ALARM ON.
--- NOTE | 2021-12-01 17:34 | NUR ---
SECOND POST OP VITALS DONE. PATIENT IS RESTING IN BED, WATCHING TV. PATIENT REPORTS 0/10 PAIN, CONTINUES ON 3L OF OXYGEN.
--- NOTE | 2021-12-01 18:00 | NUR ---
Patient refused dinner order and opted for two jellos. Call light is in reach. Patient is in bed.
--- NOTE | 2021-12-01 18:30 | NUR ---
VITALS AND ASSESSMENT DUE. PT TALKING ON PHONE. PT REPORTS 0/10 PAIN, SCHEDULED PAIN MEDICATIONS GIVEN. VITAL SIGNS STABLE. PT WEANED TO 2L O2 BY NC AND IS MAINTINING OXYGEN SATURATIONS ABOVE 94%. DRESSING INTACT, SMALL AMOUNT (GOLF BALL SIZE) RED DRAINAGE NOTED AT PROXIMAL END OF DRESSING. PIN POINT SPOTS NEAR DISTAL END. STRONG PLANTAR AND DORSI FLEXTION NOTED. STRONG PEDAL PULSES NOTED. SENSATION INTACT. PT DENIES NAUSEA, REPORTS SHE ATE MINIMAL FOOD BECAUSE "I JUST DON'T LIKE THE FOOD HERE." PT DENIES ADDIITONAL REQUESTS OR COMPLAINTS. CALL LIGHT WITHIN REACH. BED RAILS UP. BED ALARM ON. SCD'S, HEEL PROTECTORS AND CRYO CUFF IN PLACE.
--- NOTE | 2021-12-01 18:47 | NUR ---
PT POST OP DAY ZERO FOR RIGHT FEMORAL INTROTROCANTER FRACTURE REPAIR. PT HAS NOT YET BEEN OUT OF BED AFTER SURGERY, ENCORUAGED TO DO SO TOELRATED. PT TOERLATING REGULAR DIET WITH MINMAL APPITITE, PT REPORTS SHE DOES NOT LIKE THE FOOD AT THE HOSPITAL. DIET PREFERENCES ACCOMIDATED. PT REPORTS 0-7/10 PAIN. SCHEDULED PAIN MEDICATION GIVEN, NERVE BLOCK DONE POST OP. ACTICOAT, SUTURES AND OPSITE IN PLACE. DRESSING INTACT WITH SMALL AMOUNT OF RED DRAINAGE NOTED ON PROXIMAL END OF DRESSING. CMS INTACT WITH STRONG PLANTAR AND DORSI FELXION THIS SHIFT WELL STRONG PEDAL PULSES. SENSATION INTACT. MALAVE CATHETER REMAINS IN PLACE, QUANTITY SUFFICENT. PT USES CALL LIGHT AND MAKES NEEDS KNOWN.
--- NOTE | 2021-12-01 19:10 | NUR ---
REPORT RECEIVED FROM CA TROTTER. pt RESTING IN BED. 2L OXYGEN BY NC IN PLACE, SPO2 98% WITH CPOX. DRESSINGS INTACT RIGHT HIP, ACTICOAT ON HIP WITH SMALL AMT SEROSANGUINOUS SHADOWING ON DRESSING. LOWER DRESSING DRY AND INTACT. SCDS, HEEL PROTECTORS ON. IVF INFUSING WNL.
--- NOTE | 2021-12-01 20:15 | NUR ---
pt RESTING IN BED AWAKE. DENIES PAIN. CSM INTACT BLE, NUMBNESS FROM KNEE UP ON RIGHT LEG. SCDS, HEEL PROTECTORS ON. ASSESSMENT COMPLETE. DRESSINGS INTACT, SMALL AMT SHADOWING ON HIP ACTICOAT, UNCHANGED FORM START OF SHIFT. CRYO CUFF REFILLED WITH ICE AND IN PLACE. MALAVE EMPTIED. ICE WATER REFILLED. CHAPSTICK PROVIDED. NEW BAG IVF INFUSING WNL, IV SITES FLUSHED WNL, BRISK BLOOD RETURN. CALL LIGHT IN REACH.
--- NOTE | 2021-12-01 22:29 | NUR ---
pt RESTING IN BED AWAKE. DENIES PAIN. COOKIE HOSE APPLIED PER ORDERS. SPOT CHECK SPO2 WNL WITH 3L OXYGEN BY NC. SCDS, HEEL PROTECTORS ON. COFFEE PROVIDED. CALL LIGHT IN REACH. pt ON PHONE WITH SON.
--- NOTE | 2021-12-01 22:47 | NUR ---
ANTIBIOTIC COMPLETE. pt RESTING IN BED ON TELEPHONE. NO ADDITIONAL NEEDS AT THIS TIME. CALL LIGHT IN REACH.
--- NOTE | 2021-12-02 00:06 | NUR ---
CALL LIGHT ANSWERED. pt DROWSY, RESTING IN BED. REQUESTING IV IN LEFT AC BE REMOVED DUE TO DISCOMFORT. IV D/C'D WNL. IVF INFUSING WNL RIGHT AC. CALL LIGHT IN REACH. NO ADDITIONAL REQUESTS.
--- NOTE | 2021-12-02 02:00 | NUR ---
pt AWAKE RESTING IN BED. VSS. TITRATED OXYGEN TO 1L OXYGEN BY NC, SPO2 95-97% WITH 1L OXYGEN IN PLACE. ASSESSMENT COMPLETE. CRYO CUFF REFILLED WITH ICE AND IN PLACE. DRAINAGE ON RIGHT HIP DRESSING UNCHANGED FROM START OF SHIFT. COOKIE HOSE, HEEL PROTECTORS, AND SCDS ON. NEW BAG IVF INFUSING WNL. pt DENIES PAIN. SCHEDULED MEDICATIONS ADMINISTERED. COFFEE PROVIDED PER REQUEST. ICE WATER IN REACH. pt ENCOURAGED TO ATTEMPT TO REST, STATES "I'M JUST GOING TO SIP ON MY COFFEE." WATCHING TV. CALL LIGHT IN REACH.
--- NOTE | 2021-12-02 04:36 | NUR ---
CALL LIGHT ANSWERED. COFFEE HEATED REQUESTED. NO ADDITIONAL NEEDS. pt CONTINUES TO DENY PAIN.
--- NOTE | 2021-12-02 06:33 | NUR ---
pt AWAKE RESTING IN BED AWAKE. VSS. pt CONTINUES TO DENY PAIN. MALAVE EMPTIED. QS OUTPUT. IV SL WNL. SCHEDULED MEDICATIONS ADMINISTERED. CALL LIGHT IN REACH. NO ADDITIONAL NEEDS. CRYO CUFF REFILLED WITH ICE.
--- NOTE | 2021-12-02 07:34 | NUR ---
REPORT RECIEVED FROM NIGHT IDALMIS PENALOZA
--- NOTE | 2021-12-02 07:40 | NUR ---
Spoke with Dr. Deluna. Pt will not need SNF on dc and will be able to go home with her family to care for her. She has two daughters who live with her and two sons who live nearby. All assist her. He would also like the pt to have HH on dc.
--- NOTE | 2021-12-02 07:55 | NUR ---
PT AWAKE IN BED. WHITE BOARD UPDATED. CRYO CHECKED. COFFEE GIVEN TO PT. CALL LIGHT WITHIN REACH. NO FURTHER NEEDS AT THIS TIME.
--- NOTE | 2021-12-02 07:56 | OR ---
[facility] [address] [place], [place] [address] Signed DATE OF OPERATION: 12/01/2021 SURGEON: Ernesto Deluna MD PREOPERATIVE DIAGNOSIS: Right intertrochanteric hip fracture. POSTOPERATIVE DIAGNOSIS: Right intertrochanteric hip fracture with subtrochanteric extension. PROCEDURE PERFORMED: Open reduction and internal fixation of right hip. FAMILY SERVICES WORKER: None. ANESTHESIA: Spinal. BLOOD LOSS: 250 mL. IMPLANTS: A 10 x 360 TFN with 90 mm lag screw and 2 distal 5-0 locking screws. BRIEF HISTORY: Hannah is a 51-year-old female, who suffered a ground level fall in her kitchen yesterday. She was admitted to the hospital, cleared by the Medicine Service and prepared for surgery today. Risks and benefits of operative treatment were discussed with her and she elected to proceed. DESCRIPTION OF PROCEDURE: Once consent was obtained, she was taken to the operating room. After adequate anesthesia, she was placed on the fracture table. The left leg was placed in traction as well and was extended and adducted. The C-arm was brought in. The fracture was identified. Initially, our plan was to go with the DHS because the subtrochanteric extension had not made itself known. The hip was approached through a longitudinal 4-inch incision laterally, carried through skin and subcutaneous tissue. The IT band was divided longitudinally. The vastus lateralis was split and the guide pin for the DHS was advanced from the lateral femur into the center-center position in the neck. Electronically Signed By: ERNESTO DELUNA MD 12/02/21 0756 PATIENT NAME: HANNAH PUENTES OPERATIVE REPORT DATE OF : 66 REPORT #: [id number] PHYSICIAN: ERNESTO DELUNA MD PCP: CIRO OG MD REPORT IS CONFIDENTIAL AND NOT TO BE RELEASED WITHOUT AUTHORIZATION [facility] [address] [place], [place] [address] Signed This was then drilled with a triple reamer and the lag screw was placed. At the end of placing the lag screw, however, we did notice that the femur looked a little odd right at the base of the lag screw drill hole. Under close examination, it was clear that the extension had completed all the way down to the lag screw insertion. This would require a little bit heftier fixation. We then removed the lag screw and made a 1.5-inch incision proximal to the trochanteric region, carried this through the ID band and directly down onto the trochanter. The trochanter was clamped and a guide pin was advanced from the tip of the trochanter into the center of the femur. Once this was accomplished, the trochanteric region was reamed using the curved awl. The initial guide pin was exchanged for a long reaming zoila. We then reamed the femur up to an 11. There was quite a bit of chatter and I felt we could not go with a larger zoila. We then measured it to 360 and obtained a 360 zoila and placed it over the guide zoila and advanced until it was well-seated. The slot was then aligned with the femoral neck and the guide pin was advanced into the femoral head. This was then measured to a 90. No reaming was done secondary to already being reamed from the DHS. We then placed the 90 spiral lag and impacted until it was well-seated with excellent purchase in the bone. The superior locking screw was then locked down onto the lag screw. We then moved to the distal end of the zoila. Two separate stab incisions were made overlying the lateral femur and separate locking screws distally were placed using perfect circles technique. Once this was accomplished, all wounds were copiously irrigated with normal saline, closed with #2 Stratafix for the IT band layer and 0 Stratafix for the subcutaneous layer with bina for the skin. Wounds were dressed with an Acticoat 7 dressing and she was awakened, taken to the recovery room in satisfactory condition. All sponge, needle, and instrument counts were correct. Ernesto Deluna MD BA/MODL /[id number] Copies: ~ Electronically Signed By: ERNESTO DELUNA MD 12/02/21 0756 PATIENT NAME: HANNAH PUENTES OPERATIVE REPORT DATE OF : 66 REPORT #: [id number] PHYSICIAN: ERNESTO DELUNA MD PCP: CIRO OG MD REPORT IS CONFIDENTIAL AND NOT TO BE RELEASED WITHOUT AUTHORIZATION
--- NOTE | 2021-12-02 08:22 | NUR ---
MORNING ASSESSMENT DONE. PATIENT DENIES PAIN, ENDORSES NUMBNESS, CAN MOVE RIGHT FOOT. MORNING MEDICATIONS GIVEN. PLAN TO MOBILIZE PATIENT WITH PHYSICAL THERAPY TODAY TOLERATED AND SENSATION RETURNS TO RIGHT LEG. PATIENT DENIES OTHER NEEDS AT THIS TIME.
--- NOTE | 2021-12-02 09:20 | NUR ---
Spoke with pt and she lives in [place] with her 2 daughters. Sons live with her mom and care for her down the street. Pt is in a 1 story home with 2 steps. She has not walked in the room yet as she states she was tired. She does plan on working with PT today. Pt does not have DME at home and will need a walker. Son drives and does her grocery shopping for her. Daughters complete household tasks. She feels needs will be met. She does want HH.
--- NOTE | 2021-12-02 09:48 | NUR ---
PATIENT GIVEN SCHEDULED ULTRAM, DENIES PAIN.
--- NOTE | 2021-12-02 11:03 | NUR ---
PATIENT UP TO CHAIR WITH PHYSICAL THERAPY. PATIENT GIVEN 10MG OF PO OXYCODONE FOR 7/10 RIGHT HIP PAIN. MALAVE CATHETER D/C'D
--- NOTE | 2021-12-02 12:18 | NUR ---
PT IS UP IN CHAIR AND IS VERY EMOTIONAL, CRYING AND UPSET. PT SAYS "I WOULD JUST RATHER BE ." PT IS UPSET ABOUT LOSING HER FATHER AND IS AFRAID OF LOSING HER MOTHER. PT REFUSES TO EAT OR DRINK. CA LEE NOTIFIED.
--- NOTE | 2021-12-02 12:49 | NUR ---
TALKED WITH PATIENT, SHE IS WORKING THROUGH HER EMOTIONS REGARDING HER FATHER, PAIN IS LOW 3/10 AND NOT AN ISSUE. PATIENT REPORTS SHE IS NOT SLEEPING AND IS GOING TO TRY AND HAVE A NAP.
--- NOTE | 2021-12-02 13:27 | NUR ---
PATIENT BACK TO BED WITH SBA AND FWW, DID WELL WITH TOE TOUCH ON RIGHT SIDE. PATIENT DENIES NEED TO VOID YET.
--- NOTE | 2021-12-02 14:36 | NUR ---
PT AWAKE IN BED WATCHING TV. CALL LIGHT WITHIN REACH. CRYO FILLED. NO FURTHER NEEDS AT THIS TIME
--- NOTE | 2021-12-02 15:27 | NUR ---
PATIENT WORKING WITH PHYSICAL THERAPY, TOLERATING ACTIVITY WELL. PATIENT REPORTS HER PAIN IN MINIMAL 3/10 AFTER MEDICATIONS. PATIENT HAS HAD A LARGE VOID AFTER HER MALAVE REMOVAL.
--- NOTE | 2021-12-02 17:44 | NUR ---
PATIENT HAS DONE WELL WITH PHYSICAL THERAPY TODAY, ONE PERSON ASSIST WITH FWW. PATIENT HAS NOT BEEN SLEEPING OR EATING WELL HERE AND IS LOOKING FORWARD TO GOING HOME SOON. PAIN HAS BEEN WELL CONTROLLED WITH SCHEDULED MEDICATIONS AND X2 DOSES OF PRN PAIN MEDICATIONS.
--- NOTE | 2021-12-02 19:06 | NUR ---
PATIENT UP TO COMMODE TO VOID, 10MG OF OXCODONE GIVEN FOR 7/10 RIGHT HIP PAIN.
--- NOTE | 2021-12-02 19:10 | NUR ---
REPORT RECEIVED FROM CA LEE. pt RESTING IN BED AWAKE, DENIES NEEDS AT THIS TIME. STATES "I STILL FEEL IT BUT I'M OKAY". CRYO CUFF IN PLACE. CALL LIGHT IN REACH. NO REQUESTS AT THIS TIME.
--- NOTE | 2021-12-02 21:08 | NUR ---
pt RESTING IN BED AWAKE. RATES PAIN 6/10 IN RIGHT KNEE, RIGHT HIP AREA. CSM INTACT BLE. WARMTH TO RIGHT KNEE. DRESSING WITH SMALL AMT SHADOWING ON HIP ACTICOAT. CRYO CUFF REFILLED AND IN PLACE. COOKIE LOPEZ, SCDS, HEEL PROTECTORS IN PLACE. ENSURE PROVIDED, JELLO AND ICE WATER IN REACH. IV SITE FLUSHED WNL, SCHEDULED TORADOL ADMINISTERED. pt DENIES ADDITIONAL NEEDS. CALL LIGHT IN REACH.
--- NOTE | 2021-12-02 22:37 | NUR ---
pt SLEEPING, AWAKENS TO VOICE. pt RATES PAIN 4/10 IN RIGHT HIP, RIGHT THIGH. pt REQUESTING PRN PAIN MEDICATIONS WITH SCHEDULED MEDICATIONS. ICE WATER REFILLED. NO ADDITIONAL REQUESTS. CALL LIGHT IN REACH.
--- NOTE | 2021-12-02 23:45 | NUR ---
CALL LIGHT ANSWERED. SBA WITH FWW TO BSC FOR 675 ML VOID AND BACK TO BED. pt NEEDING SOME INSTRUCTION WITH KEEPING LEG STRAIGHT, USING WALKER CLOSE TO BODY. BACK IN BED SCDS ON. CRYO IN PLACE. CALL LIGHT WITHIN REACH.
--- NOTE | 2021-12-03 02:40 | NUR ---
pt SLEEPING, AWAKENS TO VOICE FOR SCHEDULED MEDICATION ADMINISTRATION. pt DENIES PAIN. pt DROWSY, SPOT CHECK SPO2 98% ON RA. ASSESSMENT COMPLETE. DRAINAGE ON RIGHT HIP DRESSING UNCHANGED. CRYO CUFF REFILLED WITH ICE AND IN PLACE. CSM INTACT BLE. WARM BLANKET PROVIDED. pt HAS NO ADDITIONAL REQUESTS. DENIES TOILETING NEEDS. CALL LIGHT IN REACH.
--- NOTE | 2021-12-03 04:16 | NUR ---
RESTING IN BED WITH EYES CLOSED. BREATHING UNLABORED. LIGHTS OFF IN ROOM. SCDS ON.
--- NOTE | 2021-12-03 06:07 | NUR ---
pt AWAKENS TO VOICE, DROWSY. DENIES ANY PAIN. DENIES TOILETING NEEDS AT THIS TIME. CRYO CUFF REFILLED AND IN PLACE. SCHEDULED PAIN MEDICATIONS ADMINISTERED. pt REQUESTING TO SLEEP MORE. "I HAVEN'T SLEPT IN DAYS I FEEL SO MUCH BETTER". SCDS ON. CALL LIGHT IN REACH. ICE WATER REFILLED.
--- NOTE | 2021-12-03 07:10 | NUR ---
this rn received report from farhan bull. pt appears to be resting at this time. sarah from rt in to cek pt. pt placed on 2l nc due to desatting when she is resting.
--- NOTE | 2021-12-03 08:14 | NUR ---
PT ASLEEP IN BED. PT REFUSED CHAIR FOR BREAKFAST, THIS IMMIGRATION COORDINATOR WILL TRY AGAIN LATER THIS MORNING. CA BRAXTON NOTIFIED. CRYO REFILLED. NO FURTHER NEEDS AT THIS TIME
[2021-12-03] MEDS ORDERED: OXYCODONE HCL5 MG PO (08:40)
[2021-12-03] MEDS ORDERED: XARELTO10 MG PO (08:40)
[2021-12-03] MEDS ORDERED: SENNA LAX8.6 MG PO (08:40)
--- NOTE | 2021-12-03 08:51 | NUR ---
PT AMBULATED FROM BED TO CHAIR INDEPENDENLY WITH FWW. PT UP EATING BREAKFAST. CALL LIGHT WITHIN REACH. NO FURTHER NEEDS AT THIS TIME
--- NOTE | 2021-12-03 09:00 | NUR ---
THIS RN IN PTS ROOM TO GIVE MORNING MED. PT SITTING UP IN CHAIR AT THIS TIME AND STATES THAT HER PAIN IS 4/10. THIS RN DISCUSSED WITH PT ABOUT TRYING TO A BM. TO DISCHARGE PT TODAY. PT HAS CONCERNS ABOUT WANTING HER TWEEZERS FOUND. THIS RN TO CALL ER. PT ALSO CONCERNED ABOUT HOW SHE WILL USE RESTROOM AT HOME- THIS RN ENCOURAGE PT TO WORK WITH PHYSICAL THERAPY ON THIS SUBJECT.
--- NOTE | 2021-12-03 10:21 | NUR ---
PT AWAKE IN CHAIR, COVERING HER FACE WITH PILLOW. PT IS EMOTIONAL AND DOES NOT WANT COMPANY. CALL LIGHT WITHIN REACH. NO FURTHER NEEDS AT THIS TIME
--- NOTE | 2021-12-03 10:35 | NUR ---
THIS RN IN PTS ROOM TO GIVE A SCHEDUELED MED. PT LAYING IN BED WITH BALNKETS OVER HER HEAD. PT REPORTS THAT SHE IS SAD DUE TO "TAWNYA LOSING MY MOTHERS W[employer]ING RING AND THAT EVERYTIME I COME TO THE HOSPITAL SOMEONE LOSES SOMETHING OF MINE" THIS RN DISCUSSED WITH PT THAT WE TRIED TO COMPENSATE FOR HER LOSS OF TWEEZERS, PT STILL UPSET THAT ROSLYN LOST HER MOTHERS RING. THIS RN DISCUSSED WITH PT THAT WAS A DIFFERENT HOSPITAL, PT STATES UNDERSTANDING.
== END 2021-12-03 12:00 | disposition home or self-care (01) | DRG 482 ==
LOC: ED 09:30 → MS 12:25
PROVIDERS: ADMIT Specialist; ATTEND Specialist
PROC: 0QS606Z Reposition Right Upper Femur with Intramedullary Internal Fixation Device, Open Approach (ICD-10-PCS; principal; 2021-12-01 12:02)
DX: S72.141A Displaced intertrochanteric fracture of right femur, initial encounter for closed fracture (principal); Z20.822 Contact with and (suspected) exposure to COVID-19; F41.9 Anxiety disorder, unspecified; F32.A Depression, unspecified; F17.210 Nicotine dependence, cigarettes, uncomplicated; Z96.653 Presence of artificial knee joint, bilateral; Z90.49 Acquired absence of other specified parts of digestive tract; Z98.890 Other specified postprocedural states; Z88.0 Allergy status to penicillin; Z88.6 Allergy status to analgesic agent; Z79.899 Other long term (current) drug therapy; W18.30XA Fall on same level, unspecified, initial encounter
CPT/HCPCS: 01210; 51702; 71045; 72192; 73502; 73552; 80048; 81001; 85025; 93005; 93010; 94762; 97110; 97162; 97530; 99285-25; C1713; C9803; J0131; J0690; J1100; J1170; J1885; J2001; J2250; J2274; J2405; J2704; J2765; J2795; J3010; J3480; J7042; J7121; U0003

== ENCOUNTER 2021-12-11 08:06 | Inpatient (IN) | payer OTHER ==
[~2021-12-11] VITALS: Ht 160 cm; Wt 54.1 kg
[~2021-12-11 08:06] MED LIST changes: +ACETAMINOPHEN1 EACH PO; +PRILOSEC OTC20 MG PO; +SENNA LAX8.6 MG PO; +XARELTO10 MG PO
--- OUTSIDE RECORDS SUMMARY | 2021-12-11 08:08 | XMS ---
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 CRITERIA MET - PDM - [facility] - 2 Visits in 30 Days CARE PROVIDERS EARLE [facility] 12/03/2020-Current PHONE: Unknown Salvador has no Care Guidelines for this patient. Annamarie VISIT COUNT (12 MO.) 5 [facility]. TOTAL 5 NOTE: Visits indicate total known visits. ED/UCC VISIT TRACKING (12 MO.) 12/11/2021 08:06 [facility] [place] TYPE: Emergency COMPLAINT: - N/V, WEAKNESS 11/30/2021 09:31 [facility] [place] TYPE: Emergency COMPLAINT: - FALL,R LEG PAIN 06/07/2021 16:59 [facility] [place] TYPE: Emergency COMPLAINT: - ESPHOGITIS HYPOKALEMIA 06/05/2021 16:28 [facility] [place] TYPE: Emergency COMPLAINT: - ABDOM PAIN 06/04/2021 17:24 [facility] [place] TYPE: Emergency COMPLAINT: - ABDOMINAL PAIN DIAGNOSES: - Allergy status to other drugs, medicaments and biological substances - Nicotine dependence, unspecified, uncomplicated - Other termite treater (current) drug therapy - Noninfective gastroenteritis and colitis, unspecified - Nausea with vomiting, unspecified - Allergy status to penicillin INPATIENT VISIT TRACKING (12 MO.) 11/30/2021 12:25 [facility] [place] TYPE: Medical Surgical COMPLAINT: - HIP FRACTURE DIAGNOSES: - Presence of artificial knee joint, bilateral - Other termite treater (current) drug therapy - Acquired absence of other specified parts of digestive tract - Fall on same level, unspecified, initial encounter - Fall on same level, unspecified, initial encounter - Presence of artificial knee joint, bilateral - Nicotine dependence, cigarettes, uncomplicated - Allergy status to analgesic agent - Allergy status to penicillin - Nicotine dependence, cigarettes, uncomplicated - DEPRESSION, UNSPECIFIED - Displaced intertrochanteric fracture of right femur, initial encounter for closed fracture - Other specified postprocedural states - Other longterm (current) drug therapy - Anxiety disorder, unspecified - Allergy status to analgesic agent - DEPRESSION, UNSPECIFIED - Allergy status to penicillin - Anxiety disorder, unspecified - Acquired absence of other specified parts of digestive tract - Other specified postprocedural states 06/07/2021 17:00 [facility] [place] TYPE: Observation COMPLAINT: - ESPHOGITIS HYPOKALEMIA DIAGNOSES: - Unspecified mood [affective] disorder - Candidal esophagitis - Gastro-esophageal reflux disease without esophagitis - Gastritis, unspecified, without bleeding - Allergy status to penicillin - Hypokalemia - Nicotine dependence, unspecified, uncomplicated - Allergy status to analgesic agent 04/15/2021 06:02 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
--- NOTE | 2021-12-12 08:55 | CONS ---
[facility] [address], [place] [address] Signed DATE OF CONSULTATION: 12/12/2021 CHIEF COMPLAINT: Hematemesis. HISTORY OF PRESENT ILLNESS: Hannah is a 51-year-old female, who looks much older than her stated age. She had a ground level fall requiring a right total hip replacement on November 30, [address] Deluna. She has been home on her Xarelto and other medications including the oxycodone. She was generally not feeling well with fatigue and malaise, some nausea and vomiting, apparently some blood involved in that with some confusion. She was brought to the emergency room for evaluation. She has been admitted to the ICU service. In due time, it was realized that she had some hematemesis and she has been a little anemic, although the hemoglobin is generally stable. Potassium and phosphorus have been replaced. She is also positive for her marijuana. I have been asked to see her as a general surgeon on-call for consideration of upper endoscopy. PAST MEDICAL HISTORY: Anxiety and depression. PAST SURGICAL HISTORY: Includes the right thumb, the right arm, three C sections, right total knee replacement, left total knee replacement x2, cholecystectomy in 2013, and then her right total hip replacement on November 30, [address] Deluna. SOCIAL HISTORY: She does not smoke or drink except for marijuana. Dr. Saini is her primary care provider. She prefers the [facility] pharmacy. Her son is Tatiana at [phone] and her mother is Griselda Carmona at . FAMILY HISTORY: None. REVIEW OF SYSTEMS: The patient not particularly helpful today. Most of the note was taken from the chart. ALLERGIES: 1. Penicillin. 2. Amoxicillin. 3. Ibuprofen. MEDICATIONS: 1. Xarelto. Electronically Signed By: HIRA MEYERS MD 12/12/21 0855 PATIENT NAME: HANNAH CARMONA CONSULTATION DATE OF : 66 REPORT #: [id number] PHYSICIAN: HIRA MEYERS MD PCP: CIRO SAINI MD REPORT IS CONFIDENTIAL AND NOT TO BE RELEASED WITHOUT AUTHORIZATION [facility] [address], [place] [address] Signed 2. Oxycodone. 3. Senna. 4. Gabapentin. 5. Venlafaxine. 6. . 7. Omeprazole. 8. Tylenol PM. PHYSICAL EXAMINATION: VITAL SIGNS: Blood pressure is 138/78, heart rate 75, respiratory rate 23, temperature is 97.8, 100% on 2 L nasal cannula. She is 5 feet 3 inches at 54 kg. GENERAL: Hannah is a 51-year-old female, lying supine in her ICU bed. She is fairly somnolent but generally arousable to awake and interactive. She looks much older than her stated age. She is disheveled and quite thin. LUNGS: Generally clear to auscultation bilaterally. HEART: Regular rate and rhythm without murmurs. ABDOMEN: Soft, flat, and nontender. LABORATORY DATA: Her white blood count is 9, hemoglobin was 10.7, is now 10.1 after IV fluids, neutrophils are 57, platelets are 489. Potassium 3.1, BUN 11, creatinine 0.49, phosphorus 2.4. COVID negative, THC positive. Urinalysis negative. Albumin is 3.3. RADIOGRAPHIC STUDIES: CT scan of the head was unremarkable. ASSESSMENT AND PLAN: Hannah is a 51-year-old female, who presents with what seems to be mostly some confusion after her hip replacement. However, she has had some nausea and vomiting, apparently with some blood in it. She is also mildly anemic. Overall, she seems to be improved here overnight. There was consideration to do upper endoscopy later today or tomorrow depending on the approval of our Internal Medicine Service. I reviewed all this with Hannah in detail. We reviewed upper endoscopy. She understands the nature of that test. There is risk including, but not limited to gas, bloating, crampy abdominal pain, bleeding, perforation requiring surgery, and missed diagnosis. Also because of her general frail functional status and her current medical issues, she is really in need of monitored anesthesia care. She has expressed understanding and wishes to proceed as above. Hira Meyers MD Electronically Signed By: HIRA MEYERS MD 12/12/21 0855 PATIENT NAME: HANNAH CARMONA CONSULTATION DATE OF : 66 REPORT #: [id number] PHYSICIAN: HIRA MEYERS MD PCP: CRIO SAINI MD REPORT IS CONFIDENTIAL AND NOT TO BE RELEASED WITHOUT AUTHORIZATION [address] [address] Signed ALB/MODL /[id number] cc: MD Hira Viramontes MD Copies: CIRO SAINI MD, ANDREW L MD ~ Electronically Signed By: HIRA MEYERS MD 12/12/21 0855 PATIENT NAME: HANNAH CARMONA CONSULTATION DATE OF : 66 REPORT #: [id number] PHYSICIAN: HIRA MEYERS MD PCP: CIRO SAINI MD REPORT IS CONFIDENTIAL AND NOT TO BE RELEASED WITHOUT AUTHORIZATION
--- NOTE | 2021-12-12 12:24 | OR ---
[facility] [address], [place] [address] Signed DATE OF OPERATION: 12/12/2021 SURGEON: Hira Meyers MD PREOPERATIVE DIAGNOSES: 1. Hematemesis. 2. Nausea and vomiting. 3. Anemia. 4. Daily oxycodone use following hip replacement. POSTOPERATIVE DIAGNOSES: 1. Moderate sized hiatal hernia (35-31 cm). 2. Moderate distal esophagitis. PROCEDURE: EGD without biopsies due to Xarelto. ESTIMATED BLOOD LOSS: None. INDICATIONS: Hannah is a 51-year-old female, who looks much older than her stated age. She had a ground level fall on November 30, 2021. Dr. Deluna had to replace her right hip due to the fracture. She has been at home apparently on Xarelto as well as oxycodone and her other usual medications that should include omeprazole. Apparently, she was feeling fatigued, nausea, vomiting with some blood in her vomit. She had a decreased level of consciousness, most likely from the oxycodone. She was quite confused and she was brought to local emergency room. She was admitted to the Internal Medicine Service. She was found to be a little anemic with a hemoglobin of 10.7. BUN was normal at 11. I have been asked to see her as a general surgeon on-call for consideration of upper endoscopy. She has done well overnight. She is a little more alert and awake this morning according to what the nurses are telling me. I met with Hannah this morning and we reviewed the above findings. I reviewed with her upper endoscopy. She understands the nature of the test. There is risk including, but not limited to gas bloating, crampy abdominal pain, bleeding, perforation requiring surgery, and missed diagnosis. Also because of her rather frail nature and acute issues as well as her chronic issues, we ask for monitored anesthesia care with propofol. That proved to be a perez decision as she did need some careful airway control and suctioning. She had expressed understanding and wished to proceed. Electronically Signed By: HIRA MEYERS MD 12/12/21 1224 PATIENT NAME: HANNAH PUENTES OPERATIVE REPORT DATE OF : 66 REPORT #: [id number] PHYSICIAN: HIRA MEYERS MD PCP: CIRO OG MD REPORT IS CONFIDENTIAL AND NOT TO BE RELEASED WITHOUT AUTHORIZATION [facility] [address], [place] [address] Signed PROCEDURE NOTE: Hannah was taken into our endoscopy suite and placed in a supine semi-recumbent position. A bite block was utilized for the case. The adult gastroscope was introduced and advanced under direct visualization of the camera without difficulty. The duodenum and pyloric channel were unremarkable. The stomach really showed minimal if any inflammatory changes. We saw no ulcers in the pyloric bulb nor the antrum. Upon retroflexion of the scope, we can see an obvious moderate-sized hiatal hernia. There was no blood whatsoever in the duodenum or the stomach. We suctioned out some bilious fluid from the fundus. The scope was then withdrawn up through the area of the GE junction, which was compliant without stricture. We carefully searched and there was no Neelam-Corey tear that we could find. The hernia measured from 35 cm back to about 31 cm. She has moderate disruption to the Z-line with distal esophagitis. I have no doubt that with some vomiting, she would have blood from this area. Again, we avoided biopsies because of the Xarelto. Interestingly, about mid esophagus we saw one submucosal vein which could potentially be an esophageal varix. She might consider an outpatient abdominal ultrasound to her primary care provider. After this, the gas had been suctioned out and the gastroscope removed. Hannah tolerated the procedure quite well. RECOMMENDATIONS: Hannah will be returned to her ICU bed and Internal Medicine Service. She will stay on her proton pump inhibitor. She should probably avoid Xarelto at this point. Hira Meyers MD [facility]/MODL /[id number] cc: MD Hira Guillaume MD Russell Barr Harrison, MD Copies: ERNESTO DELUNA MD Electronically Signed By: HIRA MEYERS MD 12/12/21 1224 PATIENT NAME: HANNAH PUENTES OPERATIVE REPORT DATE OF : 66 REPORT #: [id number] PHYSICIAN: HIRA MEYERS MD PCP: CIRO OG MD REPORT IS CONFIDENTIAL AND NOT TO BE RELEASED WITHOUT AUTHORIZATION [address] [address] Signed HIRA MEYERS MD, RUSSELL BARR MD ~ Electronically Signed By: HIRA MEYERS MD 12/12/21 1224 PATIENT NAME: HANNAH PUENTES OPERATIVE REPORT DATE OF : 66 REPORT #: [id number] PHYSICIAN: HIRA MEYERS MD PCP: CIRO OG MD REPORT IS CONFIDENTIAL AND NOT TO BE RELEASED WITHOUT AUTHORIZATION
--- NOTE | 2021-12-12 21:58 | EKG ---
[facility] [address] [facility] [place] [address] Signed Sinus rhythm with occasional premature ventricular complexes Low voltage QRS Borderline ECG When compared with ECG of 30-NOV-2021 10:52, premature ventricular complexes are now present Confirmed by PINEDA KEITA MD ([id number]) on 12/12/2021 9:58:44 PM Electronically Signed By: PINEDA KEITA MD 12/12/21 2158 PATIENT NAME: PATY PUENTES Electrocardiogram DATE OF : 66 PHYSICIAN: PINEDA KEITA MD REPORT #: [id number] REPORT IS CONFIDENTIAL AND NOT TO BE RELEASED WITHOUT AUTHORIZATION
[2021-12-17] MEDS ORDERED: SUCRALFATE1 GM PO (11:45)
[2021-12-17] MEDS ORDERED: PRILOSEC OTC20 MG PO (11:46)
== END 2021-12-17 15:45 | disposition home health service (06) | DRG 368 ==
LOC: ED 08:06 → CCU 16:02 → MS 12-12 20:18
PROVIDERS: Colon & Rectal Surgery; ADMIT Internal Medicine; ATTEND Internal Medicine
PROC: 0DJ08ZZ Inspection of Upper Intestinal Tract, Via Natural or Artificial Opening Endoscopic (ICD-10-PCS; principal; 2021-12-12 07:39)
DX: K20.91 Esophagitis, unspecified with bleeding (principal); G93.41 Metabolic encephalopathy; D62 Acute posthemorrhagic anemia; Z20.822 Contact with and (suspected) exposure to COVID-19; F41.8 Other specified anxiety disorders; K21.9 Gastro-esophageal reflux disease without esophagitis; K44.9 Diaphragmatic hernia without obstruction or gangrene; F39 Unspecified mood [affective] disorder; E87.6 Hypokalemia; Z96.653 Presence of artificial knee joint, bilateral; Z96.641 Presence of right artificial hip joint; Z90.49 Acquired absence of other specified parts of digestive tract; Z98.891 History of uterine scar from previous surgery; Z98.890 Other specified postprocedural states; Z88.0 Allergy status to penicillin; Z88.8 Allergy status to other drugs, medicaments and biological substances; Z79.01 Long term (current) use of anticoagulants; Z79.899 Other long term (current) drug therapy
CPT/HCPCS: 51701; 70450; 80048; 80053; 81001; 83735; 84100; 85025; 86850; 86900; 86901; 93005; 93010; 94760; 97110; 97116; 97163; 97530; 99285-25; C9113; C9803; J0690; J1170; J2405; J2704; J3480; J7030; J7060; U0003

== ENCOUNTER 2022-03-23 19:16 | Emergency (ER) | payer OTHER ==
[~2022-03-23] VITALS: Ht 160 cm; Wt 54.0 kg
[~2022-03-23 19:16] MED LIST changes: +OMEPRAZOLE20 MG PO
[2022-03-24] MEDS ORDERED: REGLAN10 MG PO (01:34)
[2022-03-24] MEDS ORDERED: POTASSIUM CHLO20 ME1 PO (01:34)
--- OUTSIDE RECORDS SUMMARY | 2022-03-24 01:48 | XMS ---
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 CRITERIA MET - [facility] CARE PROVIDERS EAR[facility] 12/03/2020-Current PHONE: Unknown Salvador has no Care Guidelines for this patient. Care History Medical/Surgical 12/23/2021 [facility] - CHW CALLED PATIENT- NO ANSWER-LEFT A VOICEMAIL. - CHW CONTACTED PCP DR OG- PATIENT HAS AN APT FOR FOLLOW UP ON 2021. E.D. VISIT COUNT (12 MO.) 7 [facility] TOTAL 7 NOTE: Visits indicate total known visits. ED/UCC VISIT TRACKING (12 MO.) 03/23/2022 19:17 [facility] TYPE: Emergency COMPLAINT: - ABDOMINAL PAIN 12/19/2021 18:05 [facility] TYPE: Emergency COMPLAINT: - FEVER,N/V DIAGNOSES: - Acute gastritis without bleeding - Allergy status to analgesic agent - Allergy status to penicillin - Unspecified abdominal pain - Nicotine dependence, unspecified, uncomplicated - Other local company intermodal truck driver (current) drug therapy 12/11/2021 08:06 [facility] [place] TYPE: Emergency [...] - Nicotine dependence, unspecified, uncomplicated - Other local company intermodal truck driver (current) drug therapy - Noninfective gastroenteritis and colitis, unspecified - Nausea with vomiting, unspecified - Allergy status to penicillin INPATIENT VISIT TRACKING (12 MO.) 12/11/2021 16:[address] [facility] [place] TYPE: Medical Surgical COMPLAINT: - METABOLIC ENCEPHALOPATHY DIAGNOSES: - Acquired absence of other specified parts of digestive tract - Presence of artificial knee joint, bilateral - Acute posthemorrhagic anemia - History of uterine scar from previous surgery - Hematemesis - Esophagitis, unspecified without bleeding - terminal supervisor (current) use of anticoagulants - Diaphragmatic hernia without obstruction or gangrene - nursing home (current) use of anticoagulants - History of uterine scar from previous surgery - Other specified anxiety disorders - Acute posthemorrhagic anemia - Acquired absence of other specified parts of digestive tract - Other specified anxiety disorders - Diaphragmatic hernia without obstruction or gangrene - Allergy status to penicillin - Gastro-esophageal reflux disease without esophagitis - Hypokalemia - Allergy status to other drugs, medicaments and biological substances - Allergy status to other drugs, medicaments and biological substances - Esophagitis, unspecified with bleeding - Hypokalemia - Esophagitis, unspecified with bleeding - Other care home (current) drug therapy - Presence of right artificial hip joint - Anemia, unspecified - Other local company intermodal truck driver (current) drug therapy - Unspecified mood [affective] disorder - Presence of right artificial hip joint - Other specified postprocedural states - Allergy status to penicillin - Other specified postprocedural states - Metabolic encephalopathy - Unspecified mood [affective] disorder - Gastro-esophageal reflux disease without esophagitis - Presence of artificial knee joint, bilateral 11/30/2021 12:25 [facility] [place] TYPE: Medical Surgical COMPLAINT: - HIP FRACTURE DIAGNOSES: - Presence of artificial knee joint, bilateral - Other care home (current) drug therapy - Acquired absence of [...] - Other specified postprocedural states - Other local company intermodal truck driver (current) drug therapy - Anxiety disorder, unspecified [...] Allergy status to analgesic agent 04/15/2021 06:02 [facility] [place] TYPE: Orthopedic DIAGNOSES: - 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
--- NOTE | 2022-03-25 19:08 | EKG ---
[facility] [address] [facility] [place] [address] Signed Sinus rhythm with frequent premature ventricular complexes in a pattern of bigeminy Otherwise normal ECG When compared with ECG of 12-DEC-2021 07:32, QT has lengthened Confirmed by RALPH EMMANUEL MD ([id number]) on 03/25/2022 7:07:55 PM Electronically Signed By: RALPH EMMANUEL MD 03/25/22 1908 PATIENT NAME: PATY PUENTES Electrocardiogram DATE OF : 66 PHYSICIAN: RALPH EMMANUEL MD REPORT #: [id number] REPORT IS CONFIDENTIAL AND NOT TO BE RELEASED WITHOUT AUTHORIZATION
== END 2022-03-24 01:59 | disposition home or self-care (01) ==
LOC: ED 19:16
DX: K29.70 Gastritis, unspecified, without bleeding (principal); E87.6 Hypokalemia; F17.200 Nicotine dependence, unspecified, uncomplicated; Z88.0 Allergy status to penicillin; Z88.6 Allergy status to analgesic agent; Z79.899 Other long term (current) drug therapy
CPT/HCPCS: 36415; 74177; 80053; 81001; 83690; 84132; 85025; 93005; 93010; 96366; 96375; 96376; 99284-25; A9270; C9113; J1170; J2405; J3480; J7030; Q9967

== ENCOUNTER 2022-05-07 18:30 | Emergency (ER) | payer OTHER ==
[~2022-05-07] VITALS: Ht 160 cm; Wt 52.6 kg
[~2022-05-07 18:30] MED LIST changes: +REGLAN10 MG PO
--- OUTSIDE RECORDS SUMMARY | 2022-05-07 18:32 | XMS ---
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 CRITERIA MET - [facility] CARE PROVIDERS EARLE [facility] 12/03/2020-Current PHONE: Unknown Salvador has no Care Guidelines for this patient. Care History Medical/Surgical 12/23/2021 [facility] - CHW CALLED PATIENT- NO ANSWER-LEFT A VOICEMAIL. - CHW CONTACTED PCP DR OG- PATIENT HAS AN APT FOR FOLLOW UP ON 2021. E.D. VISIT COUNT (12 MO.) 8 [facility] TOTAL 8 NOTE: Visits indicate total known visits. ED/UCC VISIT TRACKING (12 MO.) 05/07/2022 18:30 [facility] TYPE: Emergency COMPLAINT: - ABDOMINAL PAIN 03/23/2022 19:17 [facility] TYPE: Emergency COMPLAINT: - ABDOMINAL PAIN DIAGNOSES: - Hypokalemia - Other mcfp (current) drug therapy - Nicotine dependence, unspecified, uncomplicated - Allergy status to analgesic agent - Gastritis, unspecified, without bleeding - Unspecified abdominal pain - Allergy status to penicillin 12/19/2021 18:05 [facility] TYPE: Emergency COMPLAINT: - FEVER,N/V DIAGNOSES: - Acute gastritis without bleeding - Allergy status to analgesic agent - Allergy status to penicillin - Unspecified abdominal pain - Nicotine dependence, unspecified, uncomplicated - Other mcfp (current) drug therapy 12/11/2021 08:[address] [facility] [place] TYPE: Emergency COMPLAINT: - N/V, WEAKNESS 11/30/2021 09:[address] [facility] [place] TYPE: Emergency COMPLAINT: - FALL,R LEG PAIN 06/07/2021 16:[address] [facility] [place] TYPE: Emergency COMPLAINT: - ESPHOGITIS HYPOKALEMIA 06/05/2021 16:[address] [facility] [place] TYPE: Emergency COMPLAINT: - ABDOM PAIN 06/04/2021 17:24 [facility] [place] TYPE: Emergency COMPLAINT: - ABDOMINAL PAIN DIAGNOSES: - Allergy status to other drugs, medicaments and biological substances - Nicotine dependence, unspecified, uncomplicated - Other intermodal truck driver (current) drug therapy - Noninfective gastroenteritis and colitis, unspecified - Nausea with vomiting, unspecified - Allergy status to penicillin INPATIENT VISIT TRACKING (12 MO.) 12/11/2021 16:02 [facility] [place] TYPE: Medical Surgical COMPLAINT: - METABOLIC ENCEPHALOPATHY DIAGNOSES: - Acquired absence of other specified parts of digestive tract - History of uterine scar from previous surgery - Presence of artificial knee joint, bilateral - Acute posthemorrhagic anemia - History of uterine scar from previous surgery - Hematemesis - Esophagitis, unspecified without bleeding - intermodal truck driver (current) use of anticoagulants - Diaphragmatic hernia without obstruction or gangrene - nursing home (current) use of anticoagulants - Presence of artificial knee joint, bilateral - Other specified anxiety disorders - Acute [...] - Esophagitis, unspecified with bleeding - Other mcfp (current) drug therapy - Presence of right artificial hip joint - Anemia, unspecified - Other mcfp (current) drug therapy - Unspecified mood [affective] disorder - Presence of right artificial hip joint - Other specified postprocedural states - Allergy status to penicillin - Contact with and (suspected) exposure to COVID-19 - Other specified postprocedural states - Metabolic encephalopathy - Unspecified mood [affective] disorder - Gastro-esophageal reflux disease without esophagitis 11/30/2021 12:[address] [facility] [place] TYPE: Medical Surgical COMPLAINT: - HIP FRACTURE DIAGNOSES: - Presence of artificial knee joint, bilateral - Other intermodal truck driver (current) drug therapy - Acquired absence of other specified parts of digestive tract - Fall on same level, unspecified, initial encounter - Fall on same level, unspecified, initial encounter - Presence of artificial knee joint, bilateral - Nicotine dependence, cigarettes, uncomplicated - Contact with and (suspected) exposure to COVID-19 - Allergy status to analgesic agent - Allergy status to penicillin - Nicotine dependence, cigarettes, uncomplicated - DEPRESSION, UNSPECIFIED - Displaced intertrochanteric fracture of right femur, initial encounter for closed fracture - Other specified postprocedural states - Depression, unspecified - Other mcfp (current) drug therapy - Anxiety disorder, unspecified [...] uncomplicated - Allergy status to analgesic agent [email or web address]
[2022-05-07] MEDS ORDERED: CIPRO500 MG PO (21:00)
[2022-05-07] MEDS ORDERED: ONDANSETRON ODT8 MG PO (21:00)
[2022-05-07] MEDS ORDERED: LEVSIN-SL0.125 MG SL (21:00)
[2022-05-07] MEDS ORDERED: METRONIDAZOLE500 MG PO (21:00)
[2022-05-07] MEDS ORDERED: K-TAB ER20 MEQ PO (21:09)
== END 2022-05-07 21:17 | disposition home or self-care (01) ==
LOC: ED 18:30
DX: K52.9 Noninfective gastroenteritis and colitis, unspecified (principal); F17.200 Nicotine dependence, unspecified, uncomplicated; Z88.0 Allergy status to penicillin; Z88.8 Allergy status to other drugs, medicaments and biological substances; Z79.899 Other long term (current) drug therapy
CPT/HCPCS: 36415; 74177; 80053; 81001; 83690; 85025; 96361; 96375; 99284-25; A9270; J2270; J2405; J7030; Q9967

== ENCOUNTER 2022-05-29 16:10 | Emergency (ER) | payer OTHER ==
[~2022-05-29] VITALS: Ht 160 cm; Wt 54.4 kg
[~2022-05-29 16:10] MED LIST changes: +CIPRO500 MG PO; +K-TAB ER20 MEQ PO; +LEVSIN-SL0.125 MG SL; +METRONIDAZOLE500 MG PO
--- OUTSIDE RECORDS SUMMARY | 2022-05-29 16:22 | XMS ---
PreManage Notification: PATY PUENTES Security Door Maker Events 1 event(s) in the past 18 months Most recent security events: Elopement at [facility] 06/07/2021 16:59 - Other Details: PATIENT LWBS. CRITERIA MET - 6 ED Visits in 6 Months - [facility] - 2 Visits in 30 Days CARE PROVIDERS EAREL [facility] 12/03/2020-Current PHONE: Unknown Salvador has no Care Guidelines for this patient. Care History Medical/Surgical 12/23/2021 [facility] - CHW CALLED PATIENT- NO ANSWER-LEFT A VOICEMAIL. - CHW CONTACTED PCP DR OG- PATIENT HAS AN APT FOR FOLLOW UP ON 2021. E.D. VISIT COUNT (12 MO.) 9 [facility]. TOTAL 9 NOTE: Visits indicate total known visits. ED/UCC VISIT TRACKING (12 MO.) 05/29/2022 16:20 [facility] [place] TYPE: Emergency COMPLAINT: - ABD PAIN 05/07/2022 18:30 [facility] [place] TYPE: Emergency COMPLAINT: - ABDOMINAL PAIN DIAGNOSES: - Left lower quadrant pain - Allergy status to penicillin - Nicotine dependence, unspecified, uncomplicated - Other prison (current) drug therapy - Allergy status to other drugs, medicaments and biological substances - Noninfective gastroenteritis and colitis, unspecified 03/23/2022 19:17 [facility] [place] [facility] [place]: Emergency COMPLAINT: - ABDOMINAL PAIN DIAGNOSES: - Hypokalemia - Other prison (current) drug therapy - Nicotine dependence, unspecified, [...] - Nicotine dependence, unspecified, uncomplicated - Other prison (current) drug therapy 12/11/2021 08:06 [facility] [...] - Nicotine dependence, unspecified, uncomplicated - Other prison (current) drug therapy - Noninfective gastroenteritis and [...] Hematemesis - Esophagitis, unspecified without bleeding - adjunct faculty for medical terminology (current) use of anticoagulants - Diaphragmatic hernia without obstruction or gangrene - adjunct faculty for medical terminology (current) use of anticoagulants - Presence of [...] - Esophagitis, unspecified with bleeding - Other prison (current) drug therapy - Presence of right artificial hip joint - Anemia, unspecified - Other prison (current) drug therapy - Unspecified mood [affective] disorder - Presence of right artificial hip joint - Other specified postprocedural states - Allergy status to penicillin - Contact with and (suspected) exposure to COVID-19 - Other specified postprocedural states - Metabolic encephalopathy - Unspecified mood [affective] disorder - Gastro-esophageal reflux disease without esophagitis 11/30/2021 12:25 [facility] [place] TYPE: Medical Surgical COMPLAINT: - HIP FRACTURE DIAGNOSES: - Presence of artificial knee joint, bilateral - Other roasterman (current) drug therapy - Acquired absence of [...] postprocedural states - Depression, unspecified - Other roasterman (current) drug therapy - Anxiety disorder, unspecified [...] uncomplicated - Allergy status to analgesic agent [email or web address]
== END 2022-05-29 18:00 | disposition left against medical advice (07) ==
LOC: ED 16:10
DX: Z53.21 Procedure and treatment not carried out due to patient leaving prior to being seen by health care provider (principal)
CPT/HCPCS: 99283

== ENCOUNTER 2022-06-18 14:31 | Emergency (ER) | payer OTHER ==
[~2022-06-18] VITALS: Ht 160 cm; Wt 50.0 kg
--- OUTSIDE RECORDS SUMMARY | 2022-06-18 14:34 | XMS ---
PreManage Notification: PATY PUENTES Security Career Counselor Events 2 event(s) in the past 18 months Most recent security events: Elopement at [facility] 05/29/2022 16:20 - Patient eloped before treatment completed. - Patient with suicidal and/or homicidal ideations eloped. - Patient eloped with IV in place. Details: PATIENT LWBS Elopement at [facility] 06/07/2021 16:59 - Other Details: PATIENT LWBS. CRITERIA MET - [facility] - 2 Visits in 30 Days - [facility] CARE PROVIDERS EARLE [facility] 12/03/2020-Current PHONE: Unknown Salvador has no Care Guidelines for this patient. Care History Medical/Surgical 12/23/2021 [facility] - CHW CALLED PATIENT- NO ANSWER-LEFT A VOICEMAIL. - CHW CONTACTED PCP DR OG- PATIENT HAS AN APT FOR FOLLOW UP ON 2021. E.D. VISIT COUNT (12 MO.) 7 [facility] TOTAL 7 NOTE: Visits indicate total known visits. ED/UCC VISIT TRACKING (12 MO.) 06/18/2022 14:[address] [facility] [place] TYPE: Emergency COMPLAINT: - ABDOMINAL PAIN 05/29/2022 16:20 [facility] [place] TYPE: Emergency COMPLAINT: - ABD PAIN DIAGNOSES: - Procedure and treatment not carried out due to patient leaving prior to being seen by health care provider 05/07/2022 18:30 [facility] [place] [facility] [place] TYPE: Emergency COMPLAINT: - ABDOMINAL PAIN DIAGNOSES: - Left lower quadrant pain - Allergy status to penicillin - Nicotine dependence, unspecified, uncomplicated - Other penitentiary (current) drug therapy - Allergy status to other drugs, medicaments and biological substances - Noninfective gastroenteritis and colitis, unspecified 03/23/2022 19:17 [facility] [place] [facility] [place] TYPE: Emergency COMPLAINT: - ABDOMINAL PAIN DIAGNOSES: - Hypokalemia - Other intermediate manager (current) drug therapy - Nicotine dependence, unspecified, uncomplicated - Allergy status to analgesic agent - Gastritis, unspecified, without bleeding - Unspecified abdominal pain - Allergy status to penicillin 12/19/2021 18:[address] [facility] [place] TYPE: Emergency COMPLAINT: - FEVER,N/V DIAGNOSES: - Acute gastritis without bleeding - Allergy status to analgesic agent - Allergy status to penicillin - Unspecified abdominal pain - Nicotine dependence, unspecified, uncomplicated - Other penitentiary (current) drug therapy 12/11/2021 08:06 [facility] [place] TYPE: Emergency COMPLAINT: - N/V, WEAKNESS 11/30/2021 09:31 [facility] [place] TYPE: Emergency COMPLAINT: - FALL,R LEG PAIN INPATIENT VISIT TRACKING (12 MO.) 12/11/2021 16:02 [facility] [place] TYPE: Medical Surgical COMPLAINT: - METABOLIC ENCEPHALOPATHY DIAGNOSES: - Acquired absence of other specified parts of digestive tract - History of uterine scar from previous surgery - Presence of artificial knee joint, bilateral - Acute posthemorrhagic anemia - History of uterine scar from previous surgery - Hematemesis - Esophagitis, unspecified without bleeding - intermediate manager (current) use of anticoagulants - Diaphragmatic hernia without obstruction or gangrene - custodial (current) use of anticoagulants - Presence of [...] - Esophagitis, unspecified with bleeding - Other penitentiary (current) drug therapy - Presence of right artificial hip joint - Anemia, unspecified - Other intermediate manager (current) drug therapy - Unspecified mood [affective] disorder - Presence of right artificial hip joint - Other specified postprocedural states - Allergy status to penicillin - Contact with and (suspected) exposure to COVID-19 - Other specified postprocedural states - Metabolic encephalopathy - Unspecified mood [affective] disorder - Gastro-esophageal reflux disease without esophagitis 11/30/2021 12:[address] [facility] [place] TYPE: Medical Surgical COMPLAINT: - HIP FRACTURE DIAGNOSES: - Presence of artificial knee joint, bilateral - Other intermediate manager (current) drug therapy - Acquired absence of [...] postprocedural states - Depression, unspecified - Other penitentiary (current) drug therapy - Anxiety disorder, unspecified - Allergy status to analgesic agent - DEPRESSION, UNSPECIFIED - Allergy status to penicillin - Anxiety disorder, unspecified - Acquired absence of other specified parts of digestive tract - Other specified postprocedural states [email or web address]
[2022-06-18] MEDS ORDERED: PROTONIX40 MG PO (16:07)
[2022-06-18] MEDS ORDERED: LOMOTIL TABLET1 EACH PO (18:51)
[2022-06-18] MEDS ORDERED: ONDANSETRON ODT8 MG PO (18:51)
== END 2022-06-18 19:24 | disposition home or self-care (01) ==
LOC: ED 14:31
DX: K52.9 Noninfective gastroenteritis and colitis, unspecified (principal); F17.200 Nicotine dependence, unspecified, uncomplicated; Z88.0 Allergy status to penicillin; Z88.1 Allergy status to other antibiotic agents; Z88.8 Allergy status to other drugs, medicaments and biological substances; Z79.899 Other long term (current) drug therapy
CPT/HCPCS: 36415; 80053; 85025; 96374; 96375; 96376; 99284-25; J1170; J2405; J7030

== ENCOUNTER 2022-07-11 02:57 | Emergency (ER) | payer OTHER ==
[~2022-07-11] VITALS: Ht 152.4 cm; Wt 50.0 kg
[~2022-07-11 02:57] MED LIST changes: +LOMOTIL TABLET1 EACH PO
--- OUTSIDE RECORDS SUMMARY | 2022-07-11 02:58 | XMS ---
PreManage Notification: PATY PUENTES Security Special Technical Operations Officer Events 2 event(s) in the past 18 months Most recent security events: Elopement at [facility] 05/29/2022 16:20 - Patient eloped before treatment completed. - Patient with suicidal and/or homicidal ideations eloped. - Patient eloped with IV in place. Details: PATIENT LWBS Elopement at [facility] 06/07/2021 16:59 - Other Details: PATIENT LWBS. CR[place]IA MET - [place] - [facility] - 2 Visits in 30 Days CARE PROVIDERS EARLE [facility] 12/03/2020-Current PHONE: Unknown Salvador has no Care Guidelines for this patient. Care History Medical/Surgical 12/23/2021 [facility] - CHW CALLED PATIENT- NO ANSWER-LEFT A VOICEMAIL. - CHW CONTACTED PCP DR OG- PATIENT HAS AN APT FOR FOLLOW UP ON 2021. E.D. VISIT COUNT (12 MO.) 8 [facility] TOTAL 8 NOTE: Visits indicate total known visits. ED/UCC VISIT TRACKING (12 MO.) 07/11/2022 02:57 [facility] [place] TYPE: Emergency COMPLAINT: - ABD PAIN 06/18/2022 14:32 [facility] [place] TYPE: Emergency COMPLAINT: - ABDOMINAL PAIN DIAGNOSES: - Noninfective gastroenteritis and colitis, unspecified - Allergy status to other drugs, medicaments and biological substances - Unspecified abdominal pain - Other joint terminal attack controller (current) drug therapy - Nicotine dependence, unspecified, uncomplicated - Allergy status to penicillin - Allergy status to other antibiotic agents 05/29/2022 16:20 [facility] [place] TYPE: Emergency COMPLAINT: - ABD PAIN DIAGNOSES: - Procedure and treatment not carried out due to patient leaving prior to being seen by health care provider 05/07/2022 18:30 [facility] [place] TYPE: Emergency COMPLAINT: - ABDOMINAL PAIN DIAGNOSES: - Left lower quadrant pain - Allergy status to penicillin - Nicotine dependence, unspecified, uncomplicated - Other joint terminal attack controller (current) drug therapy - Allergy status to other drugs, medicaments and biological substances - Noninfective gastroenteritis and colitis, unspecified 03/23/2022 19:[address] [facility] [place] TYPE: Emergency COMPLAINT: - ABDOMINAL PAIN DIAGNOSES: - Hypokalemia - Other joint terminal attack controller (current) drug therapy - Nicotine dependence, unspecified, [...] - Nicotine dependence, unspecified, uncomplicated - Other joint terminal attack controller (current) drug therapy 12/11/2021 08:06 [facility] [place] TYPE: Emergency COMPLAINT: - N/V, [...] Hematemesis - Esophagitis, unspecified without bleeding - [facility] (current) use of anticoagulants - Diaphragmatic hernia without obstruction or gangrene - extermination inspector (current) use of anticoagulants - Presence of [...] - Esophagitis, unspecified with bleeding - Other joint terminal attack controller (current) drug therapy - Presence of right artificial hip joint - Anemia, unspecified - Other intermediate (current) drug therapy - Unspecified mood [affective] [...] of artificial knee joint, bilateral - Other joint terminal attack controller (current) drug therapy - Acquired absence of [...] postprocedural states - Depression, unspecified - Other joint terminal attack controller (current) drug therapy - Anxiety disorder, unspecified - Allergy status to analgesic agent - DEPRESSION, UNSPECIFIED - Allergy status to penicillin - Anxiety disorder, unspecified - Acquired absence of other specified parts of digestive tract - Other specified postprocedural states [id number]
[2022-07-11] MEDS ORDERED: ANUSOL-HC30 GM PR (03:51)
[2022-07-11] MEDS ORDERED: ONDANSETRON ODT8 MG PO (03:52)
== END 2022-07-11 03:55 | disposition home or self-care (01) ==
LOC: ED 02:57
DX: K52.9 Noninfective gastroenteritis and colitis, unspecified (principal); K64.4 Residual hemorrhoidal skin tags; F17.200 Nicotine dependence, unspecified, uncomplicated; Z88.0 Allergy status to penicillin; Z88.6 Allergy status to analgesic agent
CPT/HCPCS: 36415; 80053; 85025; 99284

== ENCOUNTER 2022-07-19 14:07 | Emergency (ER) | payer OTHER ==
[~2022-07-19] VITALS: Ht 160 cm; Wt 53.2 kg
[~2022-07-19 14:07] MED LIST changes: +ANUSOL-HC30 GM PR; +HYDROCODON-ACE1 EA10 PO
--- OUTSIDE RECORDS SUMMARY | 2022-07-19 14:08 | XMS ---
PreManage Notification: PATY PUENTES Security Customer Facilities Supervisor Events 2 event(s) in the past 18 months Most recent security events: Elopement at [facility] 05/29/2022 16:20 - Patient eloped before treatment completed. - Patient with suicidal and/or homicidal ideations eloped. - Patient eloped with IV in place. Details: PATIENT LWBS Elopement at [facility] 06/07/2021 16:59 - Other Details: PATIENT LWBS. CRITERIA MET - 6 ED Visits in 6 Months - [facility] - 2 Visits in 30 Days - [facility] CARE PROVIDERS EARLE [facility] 12/03/2020-Current PHONE: Unknown Salvador has no Care Guidelines for this patient. Care History Medical/Surgical 12/23/2021 [facility] - CHW CALLED PATIENT- NO ANSWER-LEFT A VOICEMAIL. - CHW CONTACTED PCP DR OG- PATIENT HAS AN APT FOR FOLLOW UP ON 2021. E.D. VISIT COUNT (12 MO.) [address] [facility] [place] TOTAL 10 NOTE: Visits indicate total known visits. ED/UCC VISIT TRACKING (12 MO.) 07/19/2022 14:07 [facility] [place] TYPE: Emergency COMPLAINT: - ABD PAIN,VOMITING 07/18/2022 22:41 [facility] [place] TYPE: Emergency COMPLAINT: - ABD PAIN 07/11/2022 02:57 [facility] [place] TYPE: Emergency COMPLAINT: - ABD PAIN DIAGNOSES: - Allergy status to penicillin - Allergy status to analgesic agent - Nicotine dependence, unspecified, uncomplicated - Residual hemorrhoidal skin tags - Unspecified abdominal pain - Noninfective gastroenteritis and colitis, unspecified 06/18/2022 14:32 [facility] [place] TYPE: Emergency COMPLAINT: - ABDOMINAL PAIN DIAGNOSES: - Noninfective gastroenteritis and colitis, unspecified - Allergy status to penicillin - Other vermin exterminator (current) drug therapy - Allergy status to other drugs, medicaments and biological substances - Allergy status to other antibiotic agents - Nicotine dependence, unspecified, uncomplicated - Unspecified abdominal pain 05/29/2022 16:20 [facility] [place] TYPE: Emergency COMPLAINT: - ABD PAIN DIAGNOSES: - Procedure and treatment not carried out due to patient leaving prior to being seen by health care provider 05/07/2022 18:30 [facility] [place] TYPE: Emergency COMPLAINT: - ABDOMINAL PAIN DIAGNOSES: - Left lower quadrant pain - Noninfective gastroenteritis and colitis, unspecified - Other vermin exterminator (current) drug therapy - Allergy status to penicillin - Allergy status to other drugs, medicaments and biological substances - Nicotine dependence, unspecified, uncomplicated 03/23/2022 19:17 [facility] [place] TYPE: Emergency COMPLAINT: - ABDOMINAL PAIN DIAGNOSES: - Hypokalemia - Unspecified abdominal pain - Allergy status to analgesic agent - Other vermin exterminator (current) drug therapy - Allergy status to penicillin - Gastritis, unspecified, without bleeding - Nicotine dependence, unspecified, uncomplicated 12/19/2021 18:05 [facility] [place] TYPE: Emergency COMPLAINT: - FEVER,N/V DIAGNOSES: - Acute gastritis without bleeding - Other vermin exterminator (current) drug therapy - Unspecified abdominal pain - Allergy status to analgesic agent - Nicotine dependence, unspecified, uncomplicated - Allergy status to penicillin 12/11/2021 08:06 [facility] [place] TYPE: Emergency COMPLAINT: - N/V, WEAKNESS 11/30/2021 09:31 [facility] [place] TYPE: Emergency COMPLAINT: - FALL,R LEG PAIN INPATIENT VISIT TRACKING (12 MO.) 12/11/2021 16:02 [facility] [place] TYPE: Medical Surgical COMPLAINT: - METABOLIC ENCEPHALOPATHY DIAGNOSES: - Allergy status to other drugs, medicaments and biological substances - vermin exterminator (current) use of anticoagulants - Unspecified mood [affective] disorder - Unspecified mood [affective] disorder - Other specified anxiety disorders - Anemia, unspecified - Hematemesis - Other specified postprocedural states - Acute posthemorrhagic anemia - Other jail (current) drug therapy - Acute posthemorrhagic anemia - Allergy status to penicillin - Acquired absence of other specified parts of digestive tract - Hypokalemia - History of uterine scar from previous surgery - Gastro-esophageal reflux disease without esophagitis - Presence of right artificial hip joint - Diaphragmatic hernia without obstruction or gangrene - Allergy status to other drugs, medicaments and biological substances - Gastro-esophageal reflux disease without esophagitis - Diaphragmatic hernia without obstruction or gangrene - Other jail (current) drug therapy - Esophagitis, unspecified without bleeding - Metabolic encephalopathy - Acquired absence of other specified parts of digestive tract - Presence of right artificial hip joint - History of uterine scar from previous surgery - Contact with and (suspected) exposure to COVID-19 - Other specified anxiety disorders - Esophagitis, unspecified with bleeding - Presence of artificial knee joint, bilateral - Hypokalemia - Other specified postprocedural states - vermin exterminator (current) use of anticoagulants - Esophagitis, unspecified with bleeding - Presence of artificial knee joint, bilateral - Allergy status to penicillin 11/30/2021 12:25 [facility] [place] TYPE: Medical Surgical COMPLAINT: - HIP FRACTURE DIAGNOSES: - Depression, unspecified - Displaced intertrochanteric fracture of right femur, initial encounter for closed fracture - Contact with and (suspected) exposure to COVID-19 - Anxiety disorder, unspecified - Allergy status to penicillin - DEPRESSION, UNSPECIFIED - Acquired absence of other specified parts of digestive tract - DEPRESSION, UNSPECIFIED - Anxiety disorder, unspecified - Fall on same level, unspecified, initial encounter - Other specified postprocedural states - Other specified postprocedural states - Nicotine dependence, cigarettes, uncomplicated - Other jail (current) drug therapy - Allergy status to analgesic agent - Allergy status to analgesic agent - Other jail (current) drug therapy - Nicotine dependence, cigarettes, uncomplicated - Allergy status to penicillin - Fall on same level, unspecified, initial encounter - Presence of artificial knee joint, bilateral - Acquired absence of other specified parts of digestive tract - Presence of artificial knee joint, bilateral [email or web address]
[2022-07-19] MEDS ORDERED: ONDANSETRON ODT4 MG PO (17:24)
[2022-07-19] MEDS ORDERED: PROTONIX40 MG PO (17:24)
== END 2022-07-19 21:20 | disposition home or self-care (01) ==
LOC: ED 14:07
DX: R11.10 Vomiting, unspecified (principal); E87.6 Hypokalemia; E83.42 Hypomagnesemia; K59.00 Constipation, unspecified; E86.0 Dehydration; F17.200 Nicotine dependence, unspecified, uncomplicated; Z88.0 Allergy status to penicillin; Z88.6 Allergy status to analgesic agent
CPT/HCPCS: 36415; 74018; 80053; 81001; 83735; 85025; A9270; J0780; J2405; J3480; J7030

== ENCOUNTER 2023-05-03 18:17 | Emergency (ER) | payer OTHER ==
[~2023-05-03] VITALS: Ht 160 cm; Wt 51.3 kg
[~2023-05-03 18:17] MED LIST changes: +CEPHALEXIN500 M1 PO; +ONDANSETRON ODT4 MG PO; +QUETIAPINE FUMA50 MG PO
--- OUTSIDE RECORDS SUMMARY | 2023-05-03 18:19 | XMS ---
PreManage Notification: PATY PUENTES Security Day Camp Counselor Events 1 event(s) in the past 18 months Most recent security events: Elopement at [facility] 05/29/2022 16:20 - Patient eloped before treatment completed. - Patient with suicidal and/or homicidal ideations eloped. - Patient eloped with IV in place. Details: PATIENT LWBS CRITERIA MET - [facility] CARE PROVIDERS -[place]- Dentist: Development Director [facility] PHONE: [phone] [facility] 12/03/2020-Current PHONE: Unknown Salvador has no Care Guidelines for this patient. Care History Medical/Surgical 12/23/2021 [facility] - CHW CALLED PATIENT- NO ANSWER-LEFT A VOICEMAIL. - CHW CONTACTED PCP DR OG- PATIENT HAS AN APT FOR FOLLOW UP ON 2021. E.D. VISIT COUNT (12 MO.) 9 [facility] TOTAL 9 NOTE: Visits indicate total known visits. ED/UCC VISIT TRACKING (12 MO.) 05/03/2023 18:17 [facility] [place] TYPE: Emergency COMPLAINT: - ABDOMINAL PAIN 03/17/2023 16:52 [facility] [place] TYPE: Emergency COMPLAINT: - RT HIP PAIN/ NO INJURY DIAGNOSES: - Allergy status to analgesic agent - Allergy status to penicillin - Contact with and (suspected) exposure to COVID-19 - Exposure to other specified factors, initial encounter - Fracture of one rib, right side, initial encounter for closed fracture - Nicotine dependence, unspecified, uncomplicated - Other senior living (current) drug therapy - Pain in right hip - Solitary pulmonary nodule - Tubulo-interstitial nephritis, not specified as acute or chronic - Wedge compression fracture of T7-T8 vertebra, initial encounter for closed fracture 11/21/2022 06:26 [facility] [place] TYPE: Emergency COMPLAINT: - VOMITING/NAUSEA DIAGNOSES: - Allergy status to analgesic agent - Allergy status to other antibiotic agents - Allergy status to penicillin - COVID-19 - Nausea with vomiting, unspecified - Nicotine dependence, unspecified, uncomplicated - Other long term care pharmacist (current) drug therapy 07/19/2022 14:07 [facility] [place] TYPE: Emergency COMPLAINT: - ABD PAIN,VOMITING DIAGNOSES: - Allergy status to analgesic agent - Allergy status to penicillin - Constipation, unspecified - Dehydration - Hypokalemia - Hypomagnesemia - Nicotine dependence, unspecified, uncomplicated - Unspecified abdominal pain - Vomiting, unspecified 07/18/2022 22:41 [facility] [place] TYPE: Emergency COMPLAINT: - ABD PAIN DIAGNOSES: - Allergy status to analgesic agent - Allergy status to penicillin - Lower abdominal pain, unspecified - Nicotine dependence, unspecified, uncomplicated - Other senior living (current) drug therapy - Unspecified abdominal pain 07/11/2022 02:57 [facility] [place] TYPE: Emergency COMPLAINT: - ABD PAIN DIAGNOSES: - Allergy status to analgesic agent - Allergy status to penicillin - Nicotine dependence, unspecified, uncomplicated - Noninfective gastroenteritis and colitis, unspecified - Residual hemorrhoidal skin tags - Unspecified abdominal pain 06/18/2022 14:32 [facility] [place] TYPE: Emergency COMPLAINT: - ABDOMINAL PAIN DIAGNOSES: - Allergy status to other antibiotic agents - Allergy status to other drugs, medicaments and biological substances - Allergy status to penicillin - Nicotine dependence, unspecified, uncomplicated - Noninfective gastroenteritis and colitis, unspecified - Other senior living (current) drug therapy - Unspecified abdominal pain 05/29/2022 16:20 [facility] [place] TYPE: Emergency COMPLAINT: - ABD PAIN DIAGNOSES: - Procedure and treatment not carried out due to patient leaving prior to being seen by health care provider 05/07/2022 18:30 [facility] [place] TYPE: Emergency COMPLAINT: - ABDOMINAL PAIN DIAGNOSES: - Allergy status to other drugs, medicaments and biological substances - Allergy status to penicillin - Left lower quadrant pain - Nicotine dependence, unspecified, uncomplicated - Noninfective gastroenteritis and colitis, unspecified - Other senior living (current) drug therapy INPATIENT VISIT TRACKING (12 MO.) No inpatient visits to display in this time frame [email or web address]
[2023-05-03] MEDS ORDERED: MIRALAX17 GM PO (19:49)
[2023-05-03] MEDS ORDERED: MACROBID 100 M100 MG PO (19:49)
[2023-05-03 19:55] VITALS: BP 157/93
== END 2023-05-03 19:55 | disposition home or self-care (01) ==
LOC: ED 18:17
DX: K59.00 Constipation, unspecified (principal); N39.0 Urinary tract infection, site not specified; F17.200 Nicotine dependence, unspecified, uncomplicated; Z88.0 Allergy status to penicillin; Z88.6 Allergy status to analgesic agent; Z79.899 Other long term (current) drug therapy
CPT/HCPCS: 36415; 74177; 80053; 81001; 83690; 85025; 96375; 99284-25; J1170; J2405; Q9967

== ENCOUNTER 2023-09-10 13:58 | Emergency (ER) | payer OTHER ==
[~2023-09-10] VITALS: Ht 160 cm; Wt 51.3 kg
[~2023-09-10 13:58] MED LIST changes: +MACROBID 100 M100 MG PO; +MIRALAX17 GM PO
--- OUTSIDE RECORDS SUMMARY | 2023-09-10 14:00 | XMS ---
PreManage Notification: PATY PUENTES Security Size Roller Operator Events 1 event(s) in the past 18 months Most recent security events: Elopement at [facility] 05/29/2022 16:20 - Patient eloped before treatment completed. - Patient with suicidal and/or homicidal ideations eloped. - Patient eloped with IV in place. Details: PATIENT LWBS CRITERIA MET - [facility] CARE PROVIDERS [facility] 12/03/2020-Current PHONE: Unknown -Boo- Dentist: Sheet Rock Installer [facility] PHONE: [phone] Salvador has no Care Guidelines for this patient. Care History Medical/Surgical 12/23/2021 [facility] - CHW CALLED PATIENT- NO ANSWER-LEFT A VOICEMAIL. - CHW CONTACTED PCP DR OG- PATIENT HAS AN APT FOR FOLLOW UP ON 2021. E.D. VISIT COUNT (12 MO.) [address] [facility] TOTAL 5 NOTE: Visits indicate total known visits. ED/UCC VISIT TRACKING (12 MO.) 09/10/2023 13:59 [facility] TYPE: Emergency COMPLAINT: - FALL, RIB PAIN 05/04/2023 07:33 [facility] TYPE: Emergency COMPLAINT: - ABD PAIN, VOMITING DIAGNOSES: - Allergy status to analgesic agent - Allergy status to penicillin - Constipation, unspecified - Nausea with vomiting, unspecified - Nicotine dependence, unspecified, uncomplicated - Other skilled nursing (current) drug therapy - Unspecified abdominal pain 05/03/2023 18:17 [facility] TYPE: Emergency COMPLAINT: - ABDOMINAL PAIN DIAGNOSES: - Allergy status to analgesic agent - Allergy status to penicillin - Constipation, unspecified - Nicotine dependence, unspecified, uncomplicated - Other skilled nursing (current) drug therapy - Urinary tract infection, site not specified 03/17/2023 16:52 [facility] TYPE: Emergency COMPLAINT: - RT HIP PAIN/ NO INJURY DIAGNOSES: - Allergy status to analgesic agent - Allergy status to penicillin - Contact with and (suspected) exposure to COVID-19 - Exposure to other specified factors, initial encounter - Fracture of one rib, right side, initial encounter for closed fracture - Nicotine dependence, unspecified, uncomplicated - Other skilled nursing (current) drug therapy - Pain in right [...] - Nicotine dependence, unspecified, uncomplicated - Other adjunct faculty for medical terminology (current) drug therapy INPATIENT VISIT TRACKING (12 MO.) No inpatient visits to display in this time frame [email or web address]
[2023-09-10] MEDS ORDERED: HYDROCODON-ACE1 EA10 PO (15:39)
[2023-09-10 15:54] VITALS: BP 115/78
[2023-09-13] MEDS ORDERED: ONDANSETRON ODT8 MG PO (02:26)
[2023-09-13] MEDS ORDERED: CEPHALEXIN500 M1 PO (02:26)
== END 2023-09-10 15:54 | disposition home or self-care (01) ==
LOC: ED 13:58
DX: S20.211A Contusion of right front wall of thorax, initial encounter (principal); F17.200 Nicotine dependence, unspecified, uncomplicated; W22.8XXA Striking against or struck by other objects, initial encounter; Z79.899 Other long term (current) drug therapy
CPT/HCPCS: 71101; 99283-25; A9270

== ENCOUNTER 2025-02-22 15:27 | Inpatient (IN) | payer OTHER ==
[~2025-02-22] VITALS: Ht 160 cm; Wt 54.6 kg
[2025-02-22] MEDS ORDERED: LACTATED RINGER'S 1,000 ML IV ONE (15:30)
[2025-02-22] MEDS ORDERED: fentaNYL citrate 100 MCG/2 ML VIAL IV ONE ×2 (15:30→16:30)
[2025-02-22] MEDS ORDERED: ondansetron HCL 4 MG/2 ML VIAL IV ONE (15:30)
[2025-02-22 15:38] LABS: BASOPHILS 0.7 % (0-2); EOSINOPHILS 0.5 % (0-6); HEMATOCRIT 37.8 % (35.0-50.0); HEMOGLOBIN 12.1 g/dL (12.0-18.0); LYMPHOCYTES 32.4 % (24-44); MCH 25.9 (27-36); MCHC 32.2 g/dl (30-36); MCV 80.4 fl (81-99); MONOCYTES 4.9 % (0-12); NEUTROPHILS 61.5 % (39-80); PLATELET COUNT 306 K/uL (140-440); RDW 16.8 (10.5-15.0)
[2025-02-22 15:58] LABS: ALBUMIN 3.2 g/dL (3.4-5.0); ALBUMIN/GLOBULIN RATIO 0.82 (1.1-2.4); ALCOHOL, MEDICAL <3 ng/dL (<3); ALKALINE PHOSPHATASE 145 U/L (46-116); ALT (SGPT) 19 U/L (14-59); ANION GAP 11.4 (7-21); AST (SGOT) 30 U/L (15-37); BILIRUBIN, TOTAL 0.3 mg/dL (0.2-1.0); BUN/CREATININE RATIO 8.77 (6.0-28.6); CALCIUM 8.8 mg/dL (8.5-10.1); CARBON DIOXIDE 30 mmol/L (21-32); CHLORIDE 105 mmol/L (98-107); CREATINE KINASE 165 U/L (26-192); CREATININE, SERUM 0.57 mg/dL (0.55-1.02); GLOMERULAR FILTRATION RATE,EST 107 mL/min (>60); POTASSIUM 3.4 mmol/L (3.5-5.1); PROTEIN, TOTAL 7.1 g/dL (6.4-8.2); UREA NITROGEN 5 mg/dL (7-18)
[2025-02-22 16:14] LABS: ABO O; ANTIBODY SCREEN NEGATIVE; RH POSITIVE
[2025-02-22] MEDS ORDERED: fentaNYL citrate 50 MCG/ML SDV IV ONE (16:30)
[2025-02-22] MEDS ORDERED: ondansetron HCL 4 MG/2 ML VIAL IV PRN (18:30)
[2025-02-22] MEDS ORDERED: KETOROLAC TROMETHAMINE 15 MG/ML VIAL IV PRN (18:30)
[2025-02-22] MEDS ORDERED: HYDROmorphone HCL 1 MG/ML SYR IV PRN (18:30)
[2025-02-22] MEDS ORDERED: LACTATED RINGER'S 1,000 ML IV SCH (18:30)
--- NOTE | 2025-02-22 19:35 | NUR ---
REPORT RECEIVED FROM APPAREL PATTERN MAKER. PATIENT TO THE FLOOR BY THIS RN. PATIENT TRANSFERRED FROM STRETCHER TO BED BY STAFF. VS OBTAINED AND RECORDED. CPOX IN PLACE. 2L NC IN PLACE. PUREWICK IN PLACE AFTER ANTIONETTE CARE PROVIDED. OUTSOLE CEMENTER MACHINE REMAINS IN ROOM.
[2025-02-22 19:41] VITALS: BP 146/83
[2025-02-22] MEDS ORDERED: FAMOTIDINE 20 MG/ 2 ML VIAL IV SCH (21:00)
[2025-02-22] MEDS ORDERED: ACETAMINOPHEN 500 MG TAB PO SCH (22:00)
[2025-02-22] MEDS ORDERED: NICOTINE POLACRILEX 4 MG LOZENGE BUCCAL PRN (22:15)
--- NOTE | 2025-02-22 22:17 | NUR ---
PATIENT RESTING IN BED. ASSESSMENT COMPLETE. SCHEDULED MEDICATION ADMINISTERED. PRN PAIN MEDICATION ADMINISTERED FOR 8/10 PAIN. PATIENT DENIES FURTHER NEEDS AT THIS TIME. CALL LIGHT IN REACH. BED ALARM ON.
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
[2025-02-22] MEDS ORDERED: ALBUTEROL SULFATE 0.083% 3 ML VIAL INH PRN (22:30)
[2025-02-22] MEDS ORDERED: NICOTINE 21 MG/24 HR 1 EA TDSY TD SCH (22:30)
[2025-02-23] VITALS (11 sets, daily range): BP systolic 140–162; BP diastolic 66–78
--- NOTE | 2025-02-23 00:19 | NUR ---
PATIENT RESTING IN BED ON BACK WITH EYES CLOSED. RESP EVEN AND UNLABORED. O2 SAT 97% ON 2L NC. PATIENT HAS NO FURTHER NEEDS. CALL LIGHT IN REACH.
--- NOTE | 2025-02-23 01:25 | NUR ---
ROUNDING ON PATIENT. PATIENT REPORTS 10/10 RIB PAIN. PRN PAIN MEDICATION ADMINISTERED. VS AND I&Os OBTAINED AND RECORDED. PATIENT HAS NO FURTHER NEEDS AT THIS TIME. CALL LIGHT IN REACH.
--- NOTE | 2025-02-23 01:56 | NUR ---
CALL LIGHT ANSWERED. PATIENT STATES "I DONT THINK THAT THIS PUREWICK IS WORKING". PATIENT INCONTINENT OF URINE. NEW BREIF AND PUREWICK PLACED AFTER ANTIONETTE CARE PROVIDED. PATIENT DENIES FURTHER NEEDS AT THIS TIME. CALL LIGHT IN REACH.
--- NOTE | 2025-02-23 03:44 | NUR ---
PATIENT RESTING IN BED. NEW BAG IV FLUID INFUSING PER ORDER. PATIENT REPORTS 7/10 RIB PAIN. PRN PAIN MEDICATION ADMINISTERED. PATIENT HAS NO FURTHER NEEDS. CALL LIGHT IN REACH.
--- NOTE | 2025-02-23 04:51 | NUR ---
PATIENT RESTING IN BED. VS AND I&Os OBTAINED AND RECORDED. PATIENT DENIES FURTHER NEEDS AT THIS TIME. CALL LIGHT IN REACH.
--- NOTE | 2025-02-23 05:13 | NUR ---
SCHEDULED MEDICATION ADMINISTERED. PATIENT HAS NO FURTHER NEEDS. CALL LIGHT IN REACH.
[2025-02-23 05:17] LABS: BASOPHILS 0.5 % (0-2); EOSINOPHILS 0.9 % (0-6); HEMATOCRIT 36.8 % (35.0-50.0); HEMOGLOBIN 11.8 g/dL (12.0-18.0); LYMPHOCYTES 36.7 % (24-44); MCH 25.7 (27-36); MCHC 32.2 g/dl (30-36); MCV 80.1 fl (81-99); MONOCYTES 7.3 % (0-12); NEUTROPHILS 54.6 % (39-80); PLATELET COUNT 210 K/uL (140-440); RBC 4.59 M/ul (4.3-5.7); RDW 16.7 (10.5-15.0)
--- NOTE | 2025-02-23 05:27 | NUR ---
PATY IS HAVING DIFFICULTY WITH CPOX PICKING UP DUE TO POOR CIRCULATION. WE HAVE TRIED HER TOES, HER EARS, HER FINGERS WITH A POSSE WRAPPED AROUND THE PROBE ALL TO NO AVAIL. CPOX DC'ED
[2025-02-23 05:34] LABS: ALBUMIN/GLOBULIN RATIO 0.88 (1.1-2.4); ANION GAP 7.4 (7-21); BILIRUBIN, TOTAL 0.3 mg/dL (0.2-1.0); BUN/CREATININE RATIO 8.51 (6.0-28.6); CALCIUM 8.8 mg/dL (8.5-10.1); CREATININE, SERUM 0.47 mg/dL (0.55-1.02); POTASSIUM 3.4 mmol/L (3.5-5.1); PROTEIN, TOTAL 6.4 g/dL (6.4-8.2)
--- NOTE | 2025-02-23 06:32 | NUR ---
NEW PUREWICK PLACED AFTER PERICARE PROVIDED. PATIENT HAS NO FURTHER NEEDS. CALL LIGHT IN REACH.
--- NOTE | 2025-02-23 07:50 | NUR ---
PT RESTING IN BED. MEAL TRAY IN FRONT OF PT. URINE SAMPLE SENT TO LAB. RN NOTIFIED. PT DENIES WARM WASH RAG AT THIS TIME. DEODORANT PROVIDED TO PT PER PT REQ. PT DENIES FURTHER NEEDS AT THIS TIME. PT USES ACCAPELLA INDEP. BED IN LOWEST POSITION, CALL LIGHT IN REACH.
[2025-02-23 08:13] LABS: BILIRUBIN, URINE NEGATIVE (negative); BLOOD/HGB, URINE NEGATIVE (Negative); KETONE, URINE NEGATIVE (Negative); LEUK ESTERASE, URINE SMALL (negative); NITRITE, URINE NEGATIVE (negative); PH, URINE 6.5 (5-7)
[2025-02-23 08:19] LABS: EPITHELIAL CELLS, URINE SQUAMOUS 1+ /lpf (0-1+)
[2025-02-23 08:22] LABS: BACTERIA, URINE 4+ /hpf (negative); CASTS, URINE NONE SEEN \\lpf; COLLECTION TYPE, URINE CLEAN CATCH; CRYSTALS, URINE NONE SEEN (0-1+); RED BLOOD CELLS, URINE 0-1 /hpf (0-5); REFLEX CULTURE, URINE Yes (No)
--- NOTE | 2025-02-23 08:35 | NUR ---
PT RESTING IN BED IN SEMI FOWLERS POSITION. RR EVEN AND UNLABORED. VITALS AND I'S AND O'S COMPLETE. PT C/O PAIN, RN NOTIFIED. PT DENIES FURTHER NEEDS AT THIS TIME, CALL LIGHT IN REACH.
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
[2025-02-23 08:48] LABS: AMPHETAMINES, URINE NEGATIVE (NEGATIVE); BARBITURATES, URINE NEGATIVE (NEGATIVE); BENZODIAZEPINE, URINE NEGATIVE (NEGATIVE); BUPRENORPHINE, URINE NEGATIVE (NEGATIVE); COCAINE, URINE NEGATIVE (NEGATIVE); ECSTASY, URINE NEGATIVE (NEGATIVE); FENTANYL, URINE POSITIVE (NEGATIVE); OPIATES, URINE POSITIVE (NEGATIVE); OXYCODONE, URINE NEGATIVE (NEGATIVE)
[2025-02-23 08:52] LABS: CANNABINOID, URINE POSITIVE (NEGATIVE); METHADONE, URINE NEGATIVE (NEGATIVE); PHENCYCLIDINE, URINE NEGATIVE (NEGATIVE)
[2025-02-23] MEDS ORDERED: NICOTINE 21 MG/24 HR 1 EA TDSY TD SCH (09:00)
--- NOTE | 2025-02-23 09:00 | NUR ---
Patient reports 8/10 rib pain. Admin dilaudid 0.5mg iv at this time. Patient resting in bed, alert and oriented x3. Patient's iv is patent, fluids infusing per order. Personal supplies and call light within reach.
--- NOTE | 2025-02-23 10:28 | NUR ---
Toradol 15mg iv admin at this time for reports of 5/10 bilat rib pain.
--- NOTE | 2025-02-23 10:45 | NUR ---
pt resting in bed. pt req to shower. pt assisted to shower sba. pt in shower and showering indep. bed linens changed. pt req more time in shower. pt educated to pull call light when ready to get out of shower. pt educated to stay seated while showering for safety.
--- NOTE | 2025-02-23 10:58 | NUR ---
NICOTINE PATCH FELL OFF PT ONTO FLOOR. RN NOTIFIED AND PATCH DISPOSED PER RN INSTRUCTION.
--- NOTE | 2025-02-23 11:15 | NUR ---
pt to chair from shower sba. pt tolerated well. purewick left out and pt to utilize bathroom as needed. pt provided brief and gown. ice chips provided and warm blanket. pt denies further needs, call light in reach
--- NOTE | 2025-02-23 11:22 | NUR ---
INTO SEE PATIENT. PERSONAL HEALTH INFORMATION REVIEWED.PATIENT LIVES IN A [place]SE IN [place] WITH 2 SONS. PATIENT HAS 2 STEPS TO GET INTO. DENIES DIFFCULTY DOING THEM. PATIENT HAS A CANE, WHEELCHAIR, AND WALKER. DOES NOT USE OXYGEN OR CPAP. SHE DOES DRIVE AND STATES "I DO NOT WANT TO AFTER THIS."PATIENT STATES SHE BEEN HAVING DIFFCULTY WITH UTILITIES AND FOOD. TALKED WITH HER ABOUT [employer] AND FOOD STAMPS/[employer]. SHE DOES KNOW ABOUT [employer] BUT SAYS ITS A LOT OF WORK TO GET ESTABLISHED. DENIES ANY OTHER CM NEEDS AT THIS TIME.
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
--- NOTE | 2025-02-23 11:49 | NUR ---
Patient sitting up in chair watching tv, no acute distress, shallow. Patient is on 2L oxygen per oxymask, pt reports nc is not comfortable. cpox in place, sp02 93% at this time. Pt denies shortness of breath at rest. Pt denies needs, personal supplies and call light within reach.
--- NOTE | 2025-02-23 12:27 | NUR ---
in pt room to check on pt. pt done with meal tray. pt asked if she would like anything else and pt declines at this time. call light in reach
[2025-02-23] MEDS ORDERED: NICOTINE 21 MG/24 HR 1 EA TDSY TD ONE (12:45)
--- NOTE | 2025-02-23 12:49 | NUR ---
pt son Ole called and will be up to see pt. PT ok w/ son coming up. RN notified.
--- NOTE | 2025-02-23 12:55 | NUR ---
Nicotine patch fell off this morning in shower. New patch placed per pt request.
--- NOTE | 2025-02-23 13:24 | NUR ---
MACKENZIE from Dr. Ramos to advance diet to regular. Order placed at this time.
--- NOTE | 2025-02-23 14:32 | NUR ---
Patient attempted to take scheduled tylenol. Patient vomited the first attempt then with second attempt crushed she spit it out stating it was "too bitter". Patient reporting she cannot tolerate the taste to tylenol po. No current needs at this time. Personal supplies and call light within reach.
--- NOTE | 2025-02-23 14:41 | NUR ---
IN ROOM TO CHECK ON PT. PT C/O PAIN AND ALSO REQ QUETIAPINE. RN NOTIFIED. PT RESTING IN BED. BED IN LOWEST POSITION. CALL LIGHT IN REACH
--- NOTE | 2025-02-23 14:46 | NUR ---
Admin dilaudid 0.5mg iv for reports of 9/10 ribs pain.
[2025-02-23] MEDS ORDERED: ALBUTEROL SULFATE 0.083% 3 ML VIAL INH PRN (15:15)
--- NOTE | 2025-02-23 15:49 | NUR ---
[facility]
--- NOTE | 2025-02-23 16:07 | NUR ---
pt resting in bed. pt req ice. ice provided. pt denies further needs. call light in reach
--- NOTE | 2025-02-23 16:15 | NUR ---
IN ROOM TO CHECK ON PT. PT UP TO CHAIR. PT STATES SHE GOT UP TO THE CHAIR W/O CALLING FOR ASSISTANCE. PT EDUCATED TO CALL FOR HELP FOR SAFETY AND TO PREVENT INJURY. PT STATES " I AM JUST SO MAD THIS THING WON'T STOP" WHEN REFERRING TO THE CPOX ALARMING. RN NOTIFIED AND CPOX STICKER REMOVED PER RN REQUEST. PT REQ HOME MEDICATION D/T "IT BEING THE ONLY THING THAT CAN HELP ME SLEEP". PT OFFERED EYE MASK AND SOUND MACHINE BUT PT REFUSED. CA MARIE NOTIFIED.
--- NOTE | 2025-02-23 16:27 | NUR ---
CALLED TO , PT REQUESTING HOME MED BE RESTARTED - QUETIAPINE. HE WILL INPUT ORDERS HERE SHORTLY, PT UPDATED THAT WILL BE ORDERED FOR TONIGHT. VERY UPSET PER NAC THAT SHE CANNOT HAVE DOSE NOW.
--- NOTE | 2025-02-23 16:30 | NUR ---
PT NOTIFIED THAT WILL BE ORDERING HER HOME MEDICATION PER CALKER. PT STATES "SO I CAN'T JUST GO TO SLEEP?". THIS DESK PEN SET ASSEMBLER INFORMS HER THAT PER THE RN THIS MEDICATION CANNOT BE GIVEN UNTIL EVENING TIME. PT STATES "I CAN'T BELIEVE THIS [facility]. I HAVENT SLEPT IN OVER 24 HOURS". PT OFFERED TO HAVE RN COME IN TO SPEAK WITH HER AND PT STATES "FORGET ABOUT IT". CA MARIE NOTIFIED.
[2025-02-23] MEDS ORDERED: QUETIAPINE FUMARATE 25 MG TAB ONE (17:04)
--- NOTE | 2025-02-23 17:18 | NUR ---
PT VERY UPSET, HAD EXPLICIT MUSIC PLAYING IN ROOM, SCREAMING "FUCK ALL YOU ALL", SHE IS C/O BEING EXHAUSTED AND NOT SLEEPING, WANTING HER QUETIAPINE EARLY, MD CALLED AT THIS TIME TO REQUEST DOSE EARLY, WHICH AGREES WE CAN PROVIDE MEDICATION EARLY TONIGHT TO ALLOW PT TO SLEEP. PT WANTS TO SLEEP NOW AND IS WANTING TO LEAVE HOME. SHE IS SCREAMING ABOUT HER SWEATHSIRT BEING CUT OFF IN THE ER, IRRITATED ALL TOGETHER WITH GETTING A COLLAR BRACE ON AFTER THE AMBULANCE RIDE, CURRENTLY ALL HER CARE FROM AMBULANCE AND ER TO NOW IS AGITATING HER. SHE AGREED TO TAKE THE QUETIAPINE NOW, NICOTINE PATCH WAS PULLED OFF, PRIMARY RN AT BEDSIDE AND REAPPLID WITH TEGADERM. OFFERED PT A COUPLE DIFFERENT OPTIONS FOR SHIRTS AND SHE IS FIXATED ON GETTING A "SHIRT" NOT THIS CRAP WE KEEP PROVIDING HER, SHE IS SITTING UP IN CHAIR AT THIS TIME WITH LEG UP ON THE BEDSIDE TABLE, CONTINUES TO SAY FUCK ALL YOU ALL SINGING ALONG WITH MUSIC. ER CALLED TO PROVIDE A SHIRT, PT REFUSED PAPER SHIRT. SURGERY CALLED TO SEE IF COULD GET A SCRUB TOP FROM THEM FOR PATIENT. PRN DILAUDID GIVEN FOR PAIN REPORTED 10/10 TO RIBS - SEE MAR. PT ROOM CLEANED SHE HAS TORN EVERYTHING UP AT THIS TIME. AFTER TALKING WITH HER MORE, SHE IS FRUSTRATED AND CURSING ABOUT THE FOOD, CONTINUES TO REINTERATE HOW "THE FOOD IS AND WE NEED TO GET A SENIOR RESEARCH FELLOW ON OUR FOOD HERE, WORST FOOR SHE HAS EVER HAD". PT REFUSING WEAR CPOX, SATS 92% ON RA AT THIS TIME, PLAYING ON HER PHONE. WILL CONTINUE TO REMOVE CPOX/O2 AT THIS TIME. ALL OTHER NOISES TURNED OFF - PUREWICK/OXYGEN TO HELP ALLOW PATIENT A QUIET SPACE TO REST. CURTAIN PULLED DOWN. PT INTERACTIONS HAVE IMPROVED AND WILLING TO WORK WITH STAFF. RT WAS CALLED TO WORK WITH PATIENT TO PREVENT FURTHER AWAKENING LATER ON. PT ALLOWED TO REST AT THIS TIME, CALL LIGHT WITHIN REACH.
--- NOTE | 2025-02-23 19:10 | NUR ---
REPORT REC'D FROM CA NEWMAN. PT REQUESTING TO NOT BE DISTURBED, LIGHTS OFF IN ROOM, PT LYING IN BED, CALL ROSALES AT SIDE, SR UP X2, BED LOW POSITION.
[2025-02-23] MEDS ORDERED: GABAPENTIN 300 MG CAP PO SCH (21:00)
[2025-02-23] MEDS ORDERED: PANTOPRAZOLE SODIUM 40 MG TABEC PO SCH (21:00)
[2025-02-23] MEDS ORDERED: QUETIAPINE FUMARATE 25 MG TAB PO SCH (21:00)
--- NOTE | 2025-02-23 21:00 | NUR ---
PT CALLED FOR ASSIST TO BRP. SBA WITH IV POLE MANAGEMENT, PT PLEASANT AND COOPERATIVE. FEELS BETTER SINCE SHE HAS HAD SOME SLEEP.
--- NOTE | 2025-02-24 00:13 | NUR ---
PT RESTING T/O SHIFT, AWAKE FROM [id number]. PT MEDICATED WITH TORADOL FOR PAIN, F/U AT THIS TIME PT RESTING QUIETLY, NO ACUTE DISTRESS NOTED. CALL ROSALES IN REACH, BED LOW POSITION AND LOCKED, SIDERAILS UP X2. PT CONTINUES TO HAVE NICOTINE PATCH ON PER REQUEST
--- NOTE | 2025-02-24 01:44 | NUR ---
GOT REPORT FROM CLEANING ASSOCIATE NURSE.
--- NOTE | 2025-02-24 02:01 | NUR ---
PATIENT CURRENTLY SLEEPING IN BED, HOB ELEVATED. PATIENT HAS SHOW STILL PLAYING ON HER PHONE. IV FLUIDS RUNNING AT 85. CALL LIGHT WITHIN REACH. BED IN LOW POSITION.
--- NOTE | 2025-02-24 03:12 | NUR ---
PATIENT HAD ELEVATED PULSE AT LAST SET OF VITALS. THIS NURSE BACK INTO CHECK ON PATIENT. PATIENT HANDS HAVE BEEN COLD WHICH HAS BEEN CAUSING TROUBLE WITH READINGS. PATIENTS HANDS HAVE BEEN UNDER THE BLANKETS CURRENTLY WHILE SLEEPING. PULSE CHECK: 70'S. PATIENT BACK TO SLEEP.
--- NOTE | 2025-02-24 03:53 | NUR ---
PATIENT CURRENTLY STILL SLEEPING WITH TV SHOW PLAYING ON HER PHONE. REGULAR RESPIRATIONS NOTED.
[2025-02-24 05:39] VITALS: BP 153/69
--- NOTE | 2025-02-24 05:41 | NUR ---
ELECTRONIC INSTALLER OBTAINED VITALS AND I&O. PT STATES NO NEEDS AT THIS TIME. CALL LIGHT WITHIN REACH.
--- NOTE | 2025-02-24 06:20 | NUR ---
PATIENT GIVEN SCHEDULED TYLENOL. PATIENT DENIES ANY PAIN AT THIS TIME. PRODUCTIVE COUGH. PATIENT SBA TO BATHROOM. BED CLEANED UP.
--- NOTE | 2025-02-24 06:26 | NUR ---
PATIENT IN PAIN AFTER GOING TO THE RESTROOM AND GETTING BACK IN BED. PATIENT GIVEN WARM BLANKET TO HOLD ON CHEST AREA TO HELP WITH PAIN. EASY BREATHING DONE. HOT COFFEE GIVEN.
[2025-02-24 06:32] VITALS: BP 153/69
--- NOTE | 2025-02-24 07:35 | NUR ---
PT RESTING IN BED. PT PROVIDED WARM WASH RAG. PT AMBULATED UP TO CHAIR INDEP. BED LINEN CHANGED. COFFEE PROVIDED. MEAL ORDERED BY THIS SOLE INKER. PT DENIES BATHROOM NEEDS AT THIS TIME. CALL LIGHT IN REACH.
--- NOTE | 2025-02-24 08:27 | NUR ---
PT RESTING IN CHAIR. ICE PROVIDED PER REQUEST. PT DENIES FURTHER NEEDS, CALL LIGHT IN REACH
--- NOTE | 2025-02-24 08:46 | NUR ---
Patient sitting up eating breakfast, sp02 92% on room air, respirations non labored. Toradol 15mg iv admin for rib pain. Patient denies shortness of breath, IS at bedside in use. Patient reports she is looking forward to discharging home today. Call light within reach of pt.
--- NOTE | 2025-02-24 08:50 | NUR ---
pt sitting in the chair eating breakfast. pt denies needs at this time. call light in reach
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
[2025-02-24 09:23] VITALS: BP 149/80
--- NOTE | 2025-02-24 09:24 | NUR ---
PT BACK TO CHAIR FROM BR. PT VITALS AND IS AND OS COMPLETE. PT DENIES ANY NEEDS AT THIS TIME. PT HAS STATED HOW SHE HAS BEEN UTILIZING THE I/S. CALL LIGHT IN REACH
[2025-02-24 09:30] VITALS: BP 149/80
--- NOTE | 2025-02-24 10:00 | NUR ---
PT SITTING UP IN CHAIR, WORKING WITH IS AT THIS TIME. PATIENT WORKING WITH IS AT THIS TIME, GETTING UP TO ABOT 600ML I BELIEVE. SHE IS DOING WELL AND IS CONTINUING TO USE Q1 HOUR AT THIS TIME. PT HAD GOOD APPETITE FOR BREAKFAST, STATES FOOD WAS REALLY GOOD THIS MORNING. CALL LIGHT WITHIN REACH.
[2025-02-24] MEDS ORDERED: NICOTINE1 EAC2 TD (11:37)
[2025-02-24] MEDS ORDERED: ACETAMINOPHEN500 MG PO (11:37)
[2025-02-24] MEDS ORDERED: OXYCODONE HCL5 MG PO (11:42)
--- NOTE | 2025-02-24 12:16 | NUR ---
PT RESTING IN BED. DENIES ANY NEEDS AT THIS TIME. CALL LIGHT IN REACH
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
== END 2025-02-24 14:00 | disposition home or self-care (01) | DRG 565 ==
LOC: ED 15:27 → MS 18:21
PROVIDERS: Emergency Medicine; ADMIT Surgery; ATTEND Surgery
DX: S22.20XA Unspecified fracture of sternum, initial encounter for closed fracture (principal); J98.11 Atelectasis; S22.43XA Multiple fractures of ribs, bilateral, initial encounter for closed fracture; V49.9XXA Car occupant (driver) (passenger) injured in unspecified traffic accident, initial encounter; F41.9 Anxiety disorder, unspecified; Z87.891 Personal history of nicotine dependence; Z79.899 Other long term (current) drug therapy; F32.A Depression, unspecified; K21.00 Gastro-esophageal reflux disease with esophagitis, without bleeding; Z90.49 Acquired absence of other specified parts of digestive tract; Z96.642 Presence of left artificial hip joint; Z88.1 Allergy status to other antibiotic agents; Z88.0 Allergy status to penicillin; Z88.8 Allergy status to other drugs, medicaments and biological substances
CPT/HCPCS: 36415; 70450; 71045; 71260; 72125; 72170; 74177; 80053; 80307; 81001; 82150; 82550; 83605; 83690; 85025; 86850; 86900; 86901; 94667; 94668; 94762; 94799; A9270; G0480; J1171; J1885; J2405; J3010; J7121; Q9967

== ENCOUNTER 2025-03-08 04:53 | Emergency (ER) | payer OTHER ==
[~2025-03-08] VITALS: Ht 160 cm; Wt 49.0 kg
[~2025-03-08 04:53] MED LIST changes: +ACETAMINOPHEN500 MG PO; +NICOTINE1 EAC2 TD
[2025-03-08 05:13] LABS: BASOPHILS 0.2 % (0-2); HEMATOCRIT 41.1 % (35.0-50.0); HEMOGLOBIN 13.2 g/dL (12.0-18.0); LYMPHOCYTES 11.7 % (24-44); MCH 25.8 (27-36); MCV 80.7 fl (81-99); MONOCYTES 1.5 % (0-12); NEUTROPHILS 86.6 % (39-80); PLATELET COUNT 393 K/uL (140-440); RDW 17.7 (10.5-15.0)
[2025-03-08] MEDS ORDERED: KETOROLAC TROMETHAMINE 30 MG/ML VIAL IV ONE (05:15)
[2025-03-08] MEDS ORDERED: LACTATED RINGER'S 1,000 ML IV ONE (05:15)
[2025-03-08] MEDS ORDERED: FAMOTIDINE 20 MG/ 2 ML VIAL IV ONE (05:15)
[2025-03-08] MEDS ORDERED: ondansetron HCL 4 MG/2 ML VIAL IV ONE (05:15)
[2025-03-08 05:28] LABS: ALBUMIN 3.8 g/dL (3.4-5.0); ALBUMIN/GLOBULIN RATIO 0.84 (1.1-2.4); ANION GAP 13.3 (7-21); BILIRUBIN, TOTAL 0.2 mg/dL (0.2-1.0); BUN/CREATININE RATIO 20.58 (6.0-28.6); CALCIUM 10.2 mg/dL (8.5-10.1); CREATININE, SERUM 0.68 mg/dL (0.55-1.02); POTASSIUM 4.3 mmol/L (3.5-5.1); PROTEIN, TOTAL 8.3 g/dL (6.4-8.2)
[2025-03-08] MEDS ORDERED: TRAMADOL HCL 50 MG TAB PO ONE (05:45)
[2025-03-08] MEDS ORDERED: TRAMADOL HCL25 MG PO (05:53)
[2025-03-08] MEDS ORDERED: KETOROLAC TROME10 MG PO (05:53)
[2025-03-08] MEDS ORDERED: TRAMADOL HCL 50 MG HOME.PACK PO ONE (06:15)
[2025-03-08 06:18] VITALS: BP 172/91
== END 2025-03-08 06:18 | disposition home or self-care (01) ==
LOC: ED 04:53
PROVIDERS: Internal Medicine
DX: S22.41XA Multiple fractures of ribs, right side, initial encounter for closed fracture (principal); S22.22XA Fracture of body of sternum, initial encounter for closed fracture; F17.200 Nicotine dependence, unspecified, uncomplicated; Z88.0 Allergy status to penicillin; Z88.6 Allergy status to analgesic agent; Z79.899 Other long term (current) drug therapy; V89.2XXA Person injured in unspecified motor-vehicle accident, traffic, initial encounter
CPT/HCPCS: 36415; 71045; 80053; 83735; 85025; 94667; 96374; 96375; 99284-25; A9270; J1885; J2405; J7121